=== PATIENT | female | born 1975 | race Caucasian/White ===

== ENCOUNTER 2017-10-09 11:52 | Emergency (ER) | payer MEDICAID ==
[2017-10-09] MEDS ORDERED: IPRATROPIUM/ALBUTEROL 3 ML DEYVIAL ONE (12:04)
[2017-10-09] MEDS ORDERED: IPRATROPIUM/ALBUTEROL 3 ML DEYVIAL IH ONE (12:09)
--- NOTE | 2017-10-09 12:12 | CPEKG ---
Heart Rate: 69 RR Interval: 870 P-R Interval: 136 QRSD Interval: 90 QT Interval: 376 QTC Interval: 403 P [place]: 68 QRS [place]: 88 T Wave [place]: 58 EKG Severity - ABNORMAL ECG - EKG Impression: SINUS RHYTHM EKG Impression: TRINITY, CONSIDER BIATRIAL ABNORMALITIES Electronically Signed By: Cristy Haskins 09-Oct-2017 14:53:56
--- NOTE | 2017-10-09 12:44 | EDPHY ---
General Time Seen by Provider: 10/09/17 12:39 Narrative: CHIEF COMPLAINT: Chest Pain HISTORY OF PRESENT ILLNESS: FAMILY HISTORY CARDIAC: PRIOR CARDIAC WORKUP: REVIEW OF SYSTEMS: Ten systems reviewed and are negative unless otherwise noted in the HPI EXAMINATION: General Appearance: Alert, no distress Head: normocephalic, atraumatic Eyes: Pupils equal and round, no conjunctival pallor or injection ENT, Mouth: Mucous membranes moist Neck: Normal inspection, supple, non-tender Respiratory: Lungs are clear to auscultation Cardiovascular: Regular rate and rhythm Gastrointestinal: Abdomen is soft and nontender Back: non-tender, no bony abnormalities Neurological: A&O, nonfocal, normal gait Skin: Warm and dry, no rash Extremities: Nontender, no pedal edema Psychiatric: Mood and affect normal DIFFERENTIAL DIAGNOSES: Including but not limited to in no particular order: Acute Chest Pain, ACS, Stable Angina, Pneumonia, PE, duodenitis, gastritis, esophagitis, GERD MDM: EKG: Interpreted by SUPERVISION: - History Smoking Status: Current every day smoker - Objective Vital Signs: Initial Vital Signs Temperature (C) 97.7 F 10/09/17 11:57 Heart Rate 87 10/09/17 11:57 Respiratory Rate 19 10/09/17 11:57 Blood Pressure 107/74 10/09/17 11:57 O2 Sat (%) 98 10/09/17 11:57 O2 Delivery Mode Room Air Allergies/Adverse Reactions: codeine [Codeine] Allergy (Unknown, Verified 10/09/17 11:55) ketorolac Allergy (Unknown, Verified 10/09/17 11:55) Penicillins Allergy (Unknown, Verified 10/09/17 11:55) Sulfa (Sulfonamide Antibiotics) [Sulfa(Sulfonamide Antibiotics)] Allergy ( Verified 10/09/17 11:55) Home Medications: Medication Instructions Recorded Ventolin Hfa Inhaler 10/09/17 Medications Given: Discontinued Medications Albuterol/Ipratropium (Duoneb) 3 ml IH EDNOW ONE Stop: 10/09/17 12:10 Last Admin: 10/09/17 12:12 Dose: 3 ml Departure - Departure Referrals: RYAN RODRIGUES [Primary Care Provider] - As per Instructions
--- NOTE | 2017-10-09 13:28 | EDPHY ---
H & P Time Seen by Provider: 10/09/17 12:39 HPI/ROS: CHIEF COMPLAINT: Right-sided chest pain, shortness of breath HISTORY OF PRESENT ILLNESS: 41-year-old female with Crohn's disease presents with right-sided chest pain and shortness of breath. Onset sharp and stabbing right-sided chest pain this morning, associated with shortness of breath. No fever or cough. History of prior pneumothorax related to blebs; concern for recurrent PTX. Hospitalized 3 weeks in 2017 for abnormal chest x-ray. Tuberculosis was ruled out and her symptoms were thought to be secondary to bleb disease and underlying rheumatologic disease. She recently moved to [place] in June 2017 and has her 1st pulmonology appointment next month. REVIEW OF SYSTEMS: Constitutional: No fever, no chills Eyes: No visual changes ENT: No sore throat Respiratory: No cough Gastrointestinal: No nausea, no vomiting, no abdominal pain Genitourinary: No hematuria, no dysuria Musculoskeletal: No leg pain or swelling Skin: No rash Neurological: No headache, no weakness Psychiatric: No depression Past Medical/Surgical History: Crohn's disease Chronic lung disease Social History: Recently moved to [place] PCP: Dr. Santiago Smoking Status: Current every day smoker Physical Exam: General Appearance: Alert, pleasant Eyes: Pupils equal and round, no conjunctival pallor or injection ENT, Mouth: Mucous membranes moist Neck: Normal inspection Respiratory: Lungs are clear to auscultation Cardiovascular: Regular rate and rhythm Gastrointestinal: Abdomen is soft and nontender Neurological: A&O, nonfocal, normal gait Skin: Warm and dry, no rash Extremities: Nontender, no pedal edema Psychiatric: Mood and affect normal Constitutional: Initial Vital Signs Temperature (C) 36.5 C 10/09/17 11:57 Heart Rate 87 10/09/17 11:57 Respiratory Rate 19 10/09/17 11:57 Blood Pressure 107/74 10/09/17 11:57 O2 Sat (%) 98 10/09/17 11:57 O2 Delivery Mode Room Air Allergies/Adverse Reactions: codeine [Codeine] Allergy (Unknown, Verified 10/09/17 11:55) ketorolac Allergy (Unknown, Verified 10/09/17 11:55) Penicillins Allergy (Unknown, Verified 10/09/17 11:55) Sulfa (Sulfonamide Antibiotics) [Sulfa(Sulfonamide Antibiotics)] Allergy ( Verified 10/09/17 11:55) Home Medications: Medication Instructions Recorded Ventolin Hfa Inhaler 10/09/17 Medical Decision Making - Diagnostics EKG Interpretation: EKG interpreted by me reveals normal sinus rhythm, rate 69, left atrial abnormality. Interpretation: Borderline EKG Imaging Results: Chest X-Ray 10/09/17 12:10 Impression: Fibronodular cicatricial process in the upper lobes bilaterally, left greater right, with with a 6.5 cm thick-walled left upper lobe cavity. Less prominent similar findings in the lingula and ill-defined nodule right lower lobe. Findings are suspicious for chronic lung infection such as tuberculosis. CT of the chest may be of benefit in further evaluation as clinically appropriate. Results called to Dr. Cristy Haskins at 12:[address]-A read by radiologist: no evidence of PE or PTX, CLD present. Imaging: Discussed imaging studies w/ call center trainer Radiologist, I viewed and interpreted images myself ED Course/Re-evaluation: This pt presents with right-sided chest pain and an abnormal chest x-ray. Prior extensive pulmonary evaluation; I have no clinical concern for tuberculosis, given pt's clinical history. The patient requests a CT pulmonary angiogram, which I feel is reasonable, given her symptomatology and prior history. Old medical records ordered from a hospital in [place]. CT scan results discussed with the patient. She is quite relieved that she does not have a pneumothorax or a pulmonary embolism. We have no old CTs for comparison, but it sounds like these changes are consistent with her prior diagnosis. Similar (though progressive) appearance as seen on prior abd CT ( per radiologist). We have not yet been able to obtain the old medical records from [place]. The patient will attempt to obtain prior CT scan results before pulmonology visit. She will return for worsening symptoms or any concerns. Differential Diagnosis: Differential diagnosis includes though it is not limited to pneumonia, pneumothorax, pulmonary embolism, aortic dissection, pericarditis, acute coronary syndrome. - Data Points Laboratory Results: Laboratory Results 10/09/17 12:18 10/09/17 12:18 Medications Given: Discontinued Medications Albuterol/Ipratropium (Duoneb) 3 ml IH EDNOW ONE Stop: 10/09/17 12:10 Last Admin: 10/09/17 12:12 Dose: 3 ml Departure - Departure Disposition: Home, Routine, Self-Care Clinical Impression: Chest pain Qualifiers: Chest pain type: chest pain on breathing Qualified Code(s): R07.1 - Chest pain on breathing; R07.81 - Pleurodynia Condition: Good Instructions: Chest Pain (ED) Additional Instructions: Return for worsening symptoms or any concerns. Referrals: Deshawn Mackay MD [Medical Doctor] - As per Instructions (Follow-up with Dr. Mackay in the office.) RYAN SANTIAGO [Primary Care Provider] - 2-3 days, call for appt.
[2017-10-09 13:36] LABS: PLATELET COUNT 356 10^3/uL (150-400)
[2017-10-09] MEDS ORDERED: IOPAMIDOL (ISOVUE 370) 100 ML BTL IV ONE (14:03)
[2017-10-09 15:05] VITALS: BP 104/65
== END 2017-10-09 15:05 | disposition home or self-care (01) ==
DX: R07.1 Chest pain on breathing (principal); R07.81 Pleurodynia; F17.200 Nicotine dependence, unspecified, uncomplicated
CPT/HCPCS: Q9967

== ENCOUNTER 2017-11-06 09:42 | Emergency (ER) | payer MEDICAID ==
[2017-11-06 09:54] VITALS: BP 100/63
--- NOTE | 2017-11-06 11:18 | EDPHY ---
HPI/HX/ROS/PE/MDM Narrative: CHIEF COMPLAINT: Shortness of breath HISTORY OF PRESENT ILLNESS: 41 year old female arriving via EMS presents with shortness of breath onset last night. She endorses history of asthma and esophageal problems. She has taken her inhaler without relief. She was evaluated in September for similar symptoms. Currently, the patient complains of esophageal pain and difficulty breathing. While coughing last night, she felt as if her esophagus moved. She states she has history of Crohn's disease and "I've had like 18 surgeries". Additionally, she has felt ill for the past week with cough and cold symptoms. No fever, chills, palpitations, vomiting, diarrhea, urinary complaints, headache , lightheadedness. HPI difficult to obtain as patient is a difficult historian. She reports being frustrated with her past medical care. REVIEW OF SYSTEMS: Aside from elements discussed in the HPI, a comprehensive 10-point review of systems was reviewed and is negative. PAST MEDICAL HISTORY: Crohn's disease s/p intestinal surgery, RA, endometriosis , s/p hysterectomy. SOCIAL HISTORY: Marijuana use. Occasional alcohol use. Former smoker, quit one month ago. Denies illicit drug use. VITAL SIGNS: Reviewed by me GENERAL: Uncomfortable appearing. HEENT: Atraumatic. Eyes: No icterus, no injection. Mouth: moist mucous membranes. No erythema or lesions. Neck: supple with no adenopathy. LUNGS: Posterior wheezes. No rhonchi or rales. CARDIAC: Regular rate and rhythm, no rubs, murmurs or gallops. ABDOMEN: High epigastric tenderness. Soft, nondistended, bowel sounds normal. BACK: No CVA tenderness. EXTREMITIES: No trauma. No edema. Range of motion is normal throughout. NEURO: Alert and oriented, grossly nonfocal. SKIN: Warm and dry, no rash. PSYCHIATRIC: Normal mentation, no agitation. Portions of this note were transcribed by a medical sales associate. I personally performed a history, physical exam, medical decision making, and confirmed accuracy of information the transcribed note. ED Course: 41 y/o female presents with shortness of breath. History difficult to obtain, and the patient is reluctant to provide significant history, answering questions in a brissa, aggressive manner. Exam reveals high epigastric tenderness. Patient declines GI cocktail. Plan to administer DuoNeb, labs including CBC, chemistries. CXR reviewed. Evidence of cavitary lesions as previously noted on a CT scan. There does appear to be right lateral mid lung patchy opacification. Patient declined a lateral x-ray and only a PA was obtained. Patient received a DuoNeb and had an albuterol nebulizer ordered. Chest x-ray shows persistent predominantly bilateral upper lobe cavitary disease with cicatrization, left greater than right, compared to 10/09/2017, with a new area of focal pleural parenchymal consolidation in the lateral right midlung. Plan for CT for further evaluation. Notified by the nursing staff that the patient expresses great frustration regarding her care. She repeatedly states that we are doing nothing for her shortness of breath. We discussed further evaluation of her chest x-ray findings especially with respect to the consolidation in the lateral right mid lung which may represent pneumonia versus pulmonary embolism. Patient eloped from the emergency department, leaving a note stating that we were not taking care of her and not treating her shortness of breath. Patient left AMA after removing her IV. See NN. MDM: Differential diagnosis for the patient's shortness of breath was considered including but not limited to pulmonary infectious processes, COPD exacerbation, pulmonary emboli, pulmonary edema, congestive heart failure, and cardiac causes. - Data Points Imaging Results: Imaging Impressions Chest X-Ray 11/06/17 10:54 Impression: Persistent predominantly bilateral upper lobe cavitary disease with cicatrization, left greater than right, compared to 10/09/2017, with a new area of focal pleural parenchymal consolidation in the lateral right midlung. Imaging: Discussed imaging studies w/ inbound call center representative Radiologist, I viewed and interpreted images myself Laboratory Results: Laboratory Results 11/06/17 11:40 11/06/17 11:40 11/06/17 11/06/17 11:40 11:40 WBC 12.55 10^3/uL H 10^3/uL (3.80-9.50) RBC 4.90 10^6/uL 10^6/uL (4.18-5.33) Hgb 14.0 g/dL g/dL (12.6-16.3) Hct 40.9 % % (38.0-47.0) MCV 83.5 fL fL (81.5-99.8) MCH 28.6 pg pg (27.9-34.1) MCHC 34.2 g/dL g/dL (32.4-36.7) RDW 13.9 % % (11.5-15.2) Plt Count 374 10^3/uL 10^3/uL (150-400) MPV 9.0 fL fL (8.7-11.7) Neut % (Auto) 71.9 % % (39.3-74.2) Lymph % (Auto) 18.6 % % (15.0-45.0) Leslie % (Auto) 8.7 % % (4.5-13.0) Eos % (Auto) 0.5 % L % (0.6-7.6) Baso % (Auto) 0.1 % L % (0.3-1.7) Nucleat RBC Rel Count 0.0 % % (0.0-0.2) Absolute Neuts (auto) 9.02 10^3/uL H 10^3/uL (1.70-6.50) Absolute Lymphs (auto) 2.34 10^3/uL 10^3/uL (1.00-3.00) Absolute Monos (auto) 1.09 10^3/uL H 10^3/uL (0.30-0.80) Absolute Eos (auto) 0.06 10^3/uL 10^3/uL (0.03-0.40) Absolute Basos (auto) 0.01 10^3/uL L 10^3/uL (0.02-0.10) Absolute Nucleated RBC 0.00 10^3/uL 10^3/uL (0-0.01) Immature Gran % 0.2 % % (0.0-1.1) Immature Gran # 0.03 10^3/uL 10^3/uL (0.00-0.10) Sodium 135 mEq/L mEq/L (135-145) Potassium 5.2 mEq/L mEq/L (3.5-5.2) Chloride 101 mEq/L mEq/L (97-110) Carbon Dioxide 17 mEq/l L mEq/l (22-31) Anion Gap 17 mEq/L H mEq/L (8-16) BUN 5 mg/dL L mg/dL (7-23) Creatinine 0.6 mg/dL mg/dL (0.6-1.0) Estimated GFR > 60 Glucose 95 mg/dL mg/dL (70-100) Calcium 9.4 mg/dL mg/dL (8.5-10.4) Medications Given: Discontinued Medications Albuterol (Proventil Neb) 3 ml IH EDNOW ONE Stop: 11/06/17 11:25 Last Admin: 11/06/17 12:42 Dose: Not Given Albuterol/Ipratropium (Duoneb) 3 ml IH EDNOW ONE Stop: 11/06/17 11:39 Last Admin: 11/06/17 11:38 Dose: 3 ml Sodium Chloride (Ns) 1,000 mls @ 0 mls/hr IV ONCE ONE; Wide Open PRN Reason: Protocol Stop: 11/06/17 11:23 Last Admin: 11/06/17 11:37 Dose: 1,000 mls General Time Seen by Provider: 11/06/17 11:05 Initial Vital Signs: Initial Vital Signs Temperature (C) 36.6 C 11/06/17 09:51 Heart Rate 68 11/06/17 09:51 Respiratory Rate 22 H 11/06/17 09:51 Blood Pressure 100/63 11/06/17 09:51 O2 Sat (%) 100 11/06/17 09:51 O2 Delivery Mode Room Air Allergies/Adverse Reactions: codeine [Codeine] Allergy (Unknown, Verified 11/06/17 09:50) ketorolac Allergy (Unknown, Verified 11/06/17 09:50) Penicillins Allergy (Unknown, Verified 11/06/17 09:50) hydrocortisone Allergy (Verified 11/06/17 09:50) Sulfa (Sulfonamide Antibiotics) [Sulfa(Sulfonamide Antibiotics)] Allergy ( Verified 11/06/17 09:50) Home Medications: Medication Instructions Recorded Ventolin Hfa Inhaler 10/09/17 Departure - Departure Disposition: Against Medical Advice Clinical Impression: Shortness of breath Condition: Fair Additional Instructions: Patient left the emergency department prior to full completion of her evaluation. Referrals: RYAN RODRIGUES [Primary Care Provider] - As per Instructions Report Scribed for: Kim Jensen Report Scribed by: Taryn Swanson Date of Report: 11/06/17 Time of Report: 14:26
[2017-11-06] MEDS ORDERED: IPRATROPIUM/ALBUTEROL 3 ML DEYVIAL ONE (11:22)
[2017-11-06] MEDS ORDERED: NS 1,000 ML IV ONE (11:22)
[2017-11-06] MEDS ORDERED: ALBUTEROL 3 ML DEYVIAL IH ONE (11:24)
[2017-11-06] MEDS ORDERED: IPRATROPIUM/ALBUTEROL 3 ML DEYVIAL IH ONE (11:38)
[2017-11-06 11:50] LABS: PLATELET COUNT 374 10^3/uL (150-400)
== END 2017-11-06 12:30 | disposition left against medical advice (07) ==
LOC: EDUNIT#
DX: R06.02 Shortness of breath (principal); E86.9 Volume depletion, unspecified; Z87.891 Personal history of nicotine dependence

== ENCOUNTER 2018-03-15 19:44 | Emergency (ER) | payer MEDICAID ==
--- NOTE | 2018-03-15 20:14 | EDPHY ---
H & P Stated Complaint: POSS PNA/HX RECURRING PNA,DEGEN MAC? Time Seen by Provider: 03/15/18 20:14 - Personal History LMP (Females 10-55): Hysterectomy Current Tetanus Diphtheria and Acellular Pertussis (TDAP): Yes Tetanus Vaccine Date: unsure - Medical/Surgical History Hx Asthma: No Hx Chronic Respiratory Disease: Yes Hx Diabetes: No Hx Cardiac Disease: No Hx Renal Disease: No Hx Cirrhosis: No Hx Alcoholism: No Hx HIV/AIDS: No Hx Splenectomy or Spleen Trauma: No Other PMH: PSHx: intestinal surg r/t crohns/hysterectomy. PMHx: crohn's, RA, endometriosis, last surg 2011, DEGENERATIVE MAC, RECURRING PNA, SPONTANEOUS PNEUMOTHORAX X 2 IN L LUNG - Social History Smoking Status: Former smoker Constitutional: Initial Vital Signs Temperature (C) 37.4 C 03/15/18 20:02 Heart Rate 80 03/15/18 20:02 Respiratory Rate 20 03/15/18 20:02 Blood Pressure 96/66 L 03/15/18 20:02 O2 Sat (%) 97 03/15/18 20:02 O2 Delivery Mode Room Air Allergies/Adverse Reactions: Penicillins Allergy (Severe, Verified 03/15/18 21:16) Anaphylaxis codeine [Codeine] Allergy (Unknown, Verified 03/15/18 21:16) Rash/ Severe vomiting ketorolac Allergy (Unknown, Verified 03/15/18 21:16) GI Bleed hydrocortisone Allergy (Verified 03/15/18 21:16) Doesn't tolerate hydromorphone [From Dilaudid] Allergy (Verified 03/15/18 21:16) Psycological changes Sulfa (Sulfonamide Antibiotics) [Sulfa(Sulfonamide Antibiotics)] Allergy ( Verified 03/15/18 21:16) Hives Home Medications: Medication Instructions Recorded Albuterol Sulfate [Ventolin Hfa] 2 puffs IH Q4 PRN 03/15/18 Medical Decision Making - Diagnostics Imaging Results: Imaging Impressions Chest X-Ray 03/15/18 20:20 Impression: 1. Cavitary lung disease once again identified involving the upper lobes with reticular nodular densities once again seen involving the mid and lower lungs. Consider underlying fungal disease/aspergillosis. History of non-mycobacterial infection. 2. No new consolidation. Imaging: I viewed and interpreted images myself ED Course/Re-evaluation: CHIEF COMPLAINT: Shortness of breath HISTORY OF PRESENT ILLNESS: The patient is a 42 y/o female with a history of Chron's disease, degenerative mac, and recurring pneumonia complaining of worsening shortness of breath, onset 1 week ago. In December she was diagnosed with pneumonia and subsequently saw Dr. Winston, decorating supervisor. Currently she feels like her "lungs are on fire" and it is painful to take a deep breath. She also has a cough associated with green sputum. This is similar to prior pneumonia diagnoses. She states that due to her Chron's disease, she cannot take oral antibiotics but can have IV antibiotics. No headache, abdominal pain, urinary or bowel complaints, numbness , paresthesias, fevers. REVIEW OF SYSTEMS: A comprehensive 10 system review of systems is otherwise negative aside from elements mentioned in the history of present illness and medical decision making. PHYSICAL EXAM: HR, BP, O2 Sat, RR. Temp noted General Appearance: Alert, well hydrated, and appropriate. Head: Atraumatic without scalp tenderness or obvious injury Eyes: Pupils equal, round, reactive to light and accommodation, EOMI, no trauma , no injection. Ears: Clear bilaterally, no perforation, normal landmarks Nose: Atraumatic, no rhinorrhea, clear. Throat: There is no erythema or exudates, no lesions, normal tonsils, mucus membranes moist. Neck: Supple, nontender, no lymphadenopathy. Respiratory: Bilateral coarse rhonchi, decreased breath sounds, expiratory wheezes. Cardiovascular: Regular rate and rhythm, no murmurs, rubs, or gallops. Bilateral carotid, radial, dorsalis pedis, and posterior tibial pulses intact. Good capillary refill all extremities. Gastrointestinal: Abdomen is soft, nontender, non-distended, no masses, no rebound, no guarding, no peritoneal signs. Musculoskeletal: Normal active ROM of all extremities, atraumatic. Neurological: Alert, appropriate, and interactive. The patient has normal DTRs and non-focal cranial nerves, motor, sensory, and cerebellar exam. Skin: No rashes, good turgor, no nodules on palpation. Past medical history: Chron's disease, degenerative mac, recurring pneumonia, spontaneous pneumonia, rheumatoid arthritis Past surgical history: Intestinal surgery, hysterectomy Family history: Denies Social history: Friend at bedside, lives in [place], not employed DIAGNOSTICS/PROCEDURES/CRITICAL CARE TIME: Chest x-ray: Cavitary lung disease once again identified involving the upper lobes with reticular nodular densities once again seen involving the mid and lower lungs. Consider underlying fungal disease/aspergillosis. History of non- mycobacterial infection. No new consolidation. DIFFERENTIAL DIAGNOSIS: The differential diagnosis for the patient's shortness of breath and hypoxemia included but was not limited to pneumonia, myocardial infarction, acute mountain sickness, high altitude pulmonary edema, congestive heart failure, and pulmonary embolus. MEDICAL DECISION MAKING: The patient is a 42 y/o female with a history of Chron's disease, degenerative mac, and recurring pneumonia presenting with worsening shortness of breath, onset 1 week ago. On exam she has bilateral coarse rhonchi, decreased breath sounds, and expiratory wheezes. Labs and chest x-ray ordered; DuoNeb administered. She is declining steroids at this time. 2129: Patient's chest x-ray reveals cavitary lung disease in the upper lobes with reticular nodular densities in the mid and lower lungs. This is similar to prior studies. There are no acute findings. 2141: I reviewed patient's labs which reveal a small white count. 2144: Reassessed patient and discussed laboratory and imaging findings. She is refusing antibiotics and admission. I have advised her to follow up with her PCP for follow up antibiotic administration. Return precautions provided. - Data Points Laboratory Results: Laboratory Results 03/15/18 20:35 03/15/18 20:35 03/15/18 03/15/18 03/15/18 20:35 20:35 20:35 WBC 12.41 10^3/uL H 10^3/uL (3.80-9.50) RBC 4.41 10^6/uL 10^6/uL (4.18-5.33) Hgb 12.1 g/dL L g/dL (12.6-16.3) Hct 36.3 % L % (38.0-47.0) MCV 82.3 fL fL (81.5-99.8) MCH 27.4 pg L pg (27.9-34.1) MCHC 33.3 g/dL g/dL (32.4-36.7) RDW 14.4 % % (11.5-15.2) Plt Count 381 10^3/uL 10^3/uL (150-400) MPV 8.9 fL fL (8.7-11.7) Neut % (Auto) 72.7 % % (39.3-74.2) Lymph % (Auto) 19.3 % % (15.0-45.0) [place] % (Auto) 6.4 % % (4.5-13.0) Eos % (Auto) 1.2 % % (0.6-7.6) Baso % (Auto) 0.2 % L % (0.3-1.7) Nucleat RBC Rel Count 0.0 % % (0.0-0.2) Absolute Neuts (auto) 9.02 10^3/uL H 10^3/uL (1.70-6.50) Absolute Lymphs (auto) 2.40 10^3/uL 10^3/uL (1.00-3.00) Absolute Monos (auto) 0.79 10^3/uL 10^3/uL (0.30-0.80) Absolute Eos (auto) 0.15 10^3/uL 10^3/uL (0.03-0.40) Absolute Basos (auto) 0.02 10^3/uL 10^3/uL (0.02-0.10) Absolute Nucleated RBC 0.00 10^3/uL 10^3/uL (0-0.01) Immature Gran % 0.2 % % (0.0-1.1) Immature Gran # 0.03 10^3/uL 10^3/uL (0.00-0.10) PT 13.7 SEC SEC (12.0-15.0) INR 1.03 (0.83-1.16) APTT 32.1 SEC SEC (23.0-38.0) VBG Lactic Acid Sodium 137 mEq/L mEq/L (135-145) Potassium 3.8 mEq/L mEq/L (3.3-5.0) Chloride 102 mEq/L mEq/L (97-110) Carbon Dioxide 26 mEq/l mEq/l (22-31) Anion Gap 9 mEq/L mEq/L (8-16) BUN 5 mg/dL L mg/dL (7-23) Creatinine 0.6 mg/dL mg/dL (0.6-1.0) Estimated GFR > 60 Glucose 100 mg/dL mg/dL (70-100) Calcium 9.7 mg/dL mg/dL (8.5-10.4) Total Bilirubin 0.3 mg/dL mg/dL (0.1-1.4) 03/15/18 20:35 WBC RBC Hgb Hct MCV MCH MCHC RDW Plt Count MPV Neut % (Auto) Lymph % (Auto) [place]er % (Auto) Eos % (Auto) Baso % (Auto) Nucleat RBC Rel Count Absolute Neuts (auto) Absolute Lymphs (auto) Absolute Monos (auto) Absolute Eos (auto) Absolute Basos (auto) Absolute Nucleated RBC Immature Gran % Immature Gran # PT INR APTT VBG Lactic Acid 0.9 mmol/L mmol/L (0.7-2.1) Sodium Potassium Chloride Carbon Dioxide Anion Gap BUN Creatinine Estimated GFR Glucose Calcium Total Bilirubin Medications Given: Discontinued Medications Albuterol/Ipratropium (Duoneb) 3 ml IH EDNOW ONE Stop: 03/15/18 20:21 Last Admin: 03/15/18 20:39 Dose: 3 ml Departure - Departure Disposition: Home, Routine, Self-Care Clinical Impression: Shortness of breath Condition: Good Instructions: Shortness of Breath (ED) Additional Instructions: 1. Follow-up with your primary doctor tomorrow, you may need follow up antibiotics. We gave you 2gm IV Ceftriaxone prior to discharge. 2. Return to the Emergency Department for fever, chest pain, shortness of breath , increasing pain or other worsening of condition. Referrals: RYAN RODRIGUES [Primary Care Provider] - As per Instructions Report Scribed for: Jose Almodovar Report Scribed by: Anushka Guzman Date of Report: 03/15/18 Time of Report: 20:15
[2018-03-15] MEDS ORDERED: IPRATROPIUM/ALBUTEROL 3 ML DEYVIAL IH ONE (20:20)
[2018-03-15] MEDS ORDERED: IPRATROPIUM/ALBUTEROL 3 ML DEYVIAL ONE (20:20)
[2018-03-15 20:49] LABS: PLATELET COUNT 381 10^3/uL (150-400)
[2018-03-15 20:57] LABS: INR 1.03 (0.83-1.16); PROTIME(PATIENT) 13.7 SEC (12.0-15.0)
[2018-03-15 22:08] VITALS: BP 100/62
== END 2018-03-15 22:08 | disposition home or self-care (01) ==
DX: R06.02 Shortness of breath (principal)
CPT/HCPCS: J0696

== ENCOUNTER 2018-03-29 11:37 | Emergency (ER) | payer MEDICAID ==
[2018-03-29 12:43] LABS: PLATELET COUNT 446 10^3/uL (150-400)
[2018-03-29 13:26] VITALS: BP 112/64
--- NOTE | 2018-03-29 13:32 | EDPHY ---
H & P Stated Complaint: 2 MONTHS COUGH/SOB SEEN HERE 2 WEEKS AGO FOR SAME Time Seen by Provider: 03/29/18 12:55 HPI/ROS: CHIEF COMPLAINT: Cough, shortness of breath HISTORY OF PRESENT ILLNESS: 42-year-old female with chronic lung disease presents with cough and shortness of breath. Onset of a moist cough 2 months ago. The cough has been persistent and is associated with shortness of breath. She was seen in this emergency department 2 weeks ago. Chest x-ray was unchanged at that time. Since then, she has continued to have a moist cough, associated with nasal congestion. No fever. 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 REVIEW OF SYSTEMS: complete 10 point ROS reviewed and is negative except for the noted elements in the HPI - Personal History LMP (Females 10-55): Post Menopausal Current Tetanus Diphtheria and Acellular Pertussis (TDAP): Yes Tetanus Vaccine Date: unsure - Medical/Surgical History Hx Asthma: No Hx Chronic Respiratory Disease: Yes Hx Diabetes: No Hx Cardiac Disease: No Hx Renal Disease: No Hx Cirrhosis: No Hx Alcoholism: No Hx HIV/AIDS: No Hx Splenectomy or Spleen Trauma: No Other PMH: PSHx: intestinal surg r/t crohns/hysterectomy. PMHx: crohn's, RA, endometriosis, last surg 2011, DEGENERATIVE MAC, RECURRING PNA, SPONTANEOUS PNEUMOTHORAX X 2 IN L LUNG - Social History Smoking Status: Current every day smoker Alcohol Use: None Drug Use: None - Physical Exam Exam: General Appearance: Alert, pleasant, nontoxic-appearing Eyes: Pupils equal and round, no conjunctival pallor or injection ENT, Mouth: Mucous membranes moist Neck: Normal inspection Respiratory: Lungs are clear to auscultation, no wheezing Cardiovascular: Regular rate and rhythm Gastrointestinal: Abdomen is soft and nontender Neurological: A&O, nonfocal, normal gait Skin: Warm and dry, no rash Extremities: Normal inspection Psychiatric: Anxious Constitutional: Initial Vital Signs Temperature (C) 36.3 C 03/29/18 11:43 Heart Rate 90 03/29/18 11:43 Respiratory Rate 19 03/29/18 11:43 Blood Pressure 97/68 L 03/29/18 11:43 O2 Sat (%) 97 03/29/18 11:43 O2 Delivery Mode Room Air Allergies/Adverse Reactions: Penicillins Allergy (Severe, Verified 03/15/18 21:16) Anaphylaxis codeine [Codeine] Allergy (Unknown, Verified 03/15/18 21:16) Rash/ Severe vomiting ketorolac Allergy (Unknown, Verified 03/15/18 21:16) GI Bleed hydrocortisone Allergy (Verified 03/15/18 21:16) Doesn't tolerate hydromorphone [From Dilaudid] Allergy (Verified 03/15/18 21:16) Psycological changes Sulfa (Sulfonamide Antibiotics) [Sulfa(Sulfonamide Antibiotics)] Allergy ( Verified 03/15/18 21:16) Hives Home Medications: Medication Instructions Recorded Albuterol Sulfate [Ventolin Hfa] 2 puffs IH Q4 PRN 03/15/18 Azithromycin [Zithromax] 250 mg PO DAILY #6 tab 03/29/18 Medical Decision Making - Diagnostics Imaging Results: Imaging Impressions Chest X-Ray 03/29/18 11:48 Impression: No change to chronic interstitial lung disease. Imaging: I viewed and interpreted images myself ED Course/Re-evaluation: This patient presents with subacute cough and shortness of breath. Vital signs are normal including oxygen saturation of 97% on room air. Chest x-ray reveals chronic lung disease, without infiltrate. I had a prolonged conversation with this patient. She feels that she needs IV antibiotics. However, I do not feel that IV antibiotics are indicated, as there is no infiltrate on chest x-ray and oral antibiotics would suffice. However, she declines oral antibiotics. I will give her prescription for Zithromax in case she changes her mind. There is also a significant psychological component to her illness and chronic disease. I spoke with her about this and encouraged her to follow-up with mental health. Differential Diagnosis: Differential diagnosis includes though it is not limited to pneumonia, pneumothorax, pulmonary embolism, aortic dissection, pericarditis, acute coronary syndrome. - Data Points Laboratory Results: Laboratory Results 03/29/18 12:30 03/29/18 12:30 03/29/18 03/29/18 12:30 12:30 WBC 14.25 10^3/uL H 10^3/uL (3.80-9.50) RBC 5.10 10^6/uL 10^6/uL (4.18-5.33) Hgb 13.8 g/dL g/dL (12.6-16.3) Hct 42.0 % % (38.0-47.0) MCV 82.4 fL fL (81.5-99.8) MCH 27.1 pg L pg (27.9-34.1) MCHC 32.9 g/dL g/dL (32.4-36.7) RDW 14.4 % % (11.5-15.2) Plt Count 446 10^3/uL H 10^3/uL (150-400) MPV 8.8 fL fL (8.7-11.7) Neut % (Auto) 81.7 % H % (39.3-74.2) Lymph % (Auto) 13.0 % L % (15.0-45.0) Mclean % (Auto) 4.4 % L % (4.5-13.0) Eos % (Auto) 0.4 % L % (0.6-7.6) Baso % (Auto) 0.1 % L % (0.3-1.7) Nucleat RBC Rel Count 0.0 % % (0.0-0.2) Absolute Neuts (auto) 11.63 10^3/uL H 10^3/uL (1.70-6.50) Absolute Lymphs (auto) 1.85 10^3/uL 10^3/uL (1.00-3.00) Absolute Monos (auto) 0.63 10^3/uL 10^3/uL (0.30-0.80) Absolute Eos (auto) 0.06 10^3/uL 10^3/uL (0.03-0.40) Absolute Basos (auto) 0.02 10^3/uL 10^3/uL (0.02-0.10) Absolute Nucleated RBC 0.00 10^3/uL 10^3/uL (0-0.01) Immature Gran % 0.4 % % (0.0-1.1) Immature Gran # 0.06 10^3/uL 10^3/uL (0.00-0.10) Sodium 138 mEq/L mEq/L (135-145) Potassium 4.3 mEq/L mEq/L (3.3-5.0) Chloride 103 mEq/L mEq/L (97-110) Carbon Dioxide 21 mEq/l L mEq/l (22-31) Anion Gap 14 mEq/L mEq/L (8-16) BUN 8 mg/dL mg/dL (7-23) Creatinine 0.6 mg/dL mg/dL (0.6-1.0) Estimated GFR > 60 Glucose 90 mg/dL mg/dL (70-100) Calcium 9.9 mg/dL mg/dL (8.5-10.4) Departure - Departure Disposition: Home, Routine, Self-Care Clinical Impression: Acute bronchitis Qualifiers: Bronchitis organism: unspecified organism Qualified Code(s): J20.9 - Acute bronchitis, unspecified Condition: Good Instructions: Acute Bronchitis (ED) Additional Instructions: Drink plenty of fluids. I recommend a trial of antibiotics. If you are still smoking, please stop. Return for worsening symptoms or any concerns. Referrals: RYAN RODRIGUES [Primary Care Provider] - 2-3 days, call for appt. Bhavesh Gil MD [Medical Doctor] - As per Instructions (Call to make an appointment with Dr. Gil. ) Prescriptions: Azithromycin [Zithromax] 250 mg PO DAILY #6 tab
== END 2018-03-29 13:40 | disposition home or self-care (01) ==
DX: J20.9 Acute bronchitis, unspecified (principal); M06.9 Rheumatoid arthritis, unspecified; Z87.01 Personal history of pneumonia (recurrent); F17.210 Nicotine dependence, cigarettes, uncomplicated; J98.4 Other disorders of lung

== ENCOUNTER 2018-08-10 08:29 | Emergency (ER) | payer MEDICAID ==
[2018-08-10] MEDS ORDERED: fentaNYL 100 MCG/2 ML INJ IVP ONE (09:13)
[2018-08-10] MEDS ORDERED: NS 1,000 ML IV ONE (09:13)
--- NOTE | 2018-08-10 09:13 | EDPHY ---
General - History Smoking Status: Current every day smoker Time Seen by Provider: 08/10/18 08:48 Narrative: CLINICAL IMPRESSION: Abdominal pain, left hip pain ASSESSMENT/PLAN: Patient is a 42-year-old female with a significant history of rheumatoid arthritis, Crohn's disease status post bowel resection, endometriosis status post hysterectomy and degenerative mac who presents to the emergency department with complaints of generalized abdominal pain that is been ongoing however improving over the last week and acute left hip pain which has been worsening over the last 4 days. Patient is afebrile she is uncomfortable appearing however not toxic-appearing. HSNE intact with no significant red flags. CBC revealed mild leukocytosis, nonspecific. Her vital signs were reviewed and there were no findings to suggest sepsis or serious bacterial illness. Metabolic panel without evidence of acute metabolic abnormality or acute kidney injury. Lipase and liver function panels unremarkable without evidence of acute hepatitis, acute hepatobiliary obstruction or acute pancreatitis. CT abdomen and pelvis with mild fluid in the small bowel without evidence of significant inflammation, dilatation or obstruction, colon is unremarkable as well as bony structures including the left hip. History and physical examination today is consistent with generalized abdominal pain and acute left hip pain. She had no saddle paresthesias, lower extremity numbness, tingling, major motor weakness, urinary retention or bowel/bladder incontinence. No indication for emergent MRI. There were no clinical findings to suggest acute surgical abdomen including appendicitis, cholecystitis, kidney stone, perforation or obstruction. In regards to her left hip pain, she had no back pain to suggest lumbar etiology and no radicular pain to suggest sciatica. I do not suspect other etiologies to include osteomyelitis, acute fracture, dislocation, septic joint, herpes zoster, or additional emergent intraabdominal infectious/obstructive process. It is unclear the exact etiology of her ongoing generalized abdominal pain and acute atraumatic left hip pain at this time. Patient was given single dose of morphine and Percocet while in the ED with significant improvement of her pain. She is well established with her PCP and understands the importance of close follow-up, she will call to schedule appointment to be seen in the next 1-2 days. Strict return precautions discussed- she will return for increased or unmanageable pain, new injury, new midline back pain, numbness, tingling, weakness of legs, loss of bowel or bladder control, saddle paresthesia, urinary retention, loss of bowel or bladder control, difficulty walking or for any other new, worsening or worrisome symptoms. Patient verbalizes understanding and she is in agreement with plan. DIFFERENTIAL DX: Abdominal pain in a female including but not limited to ovarian cyst, pelvic inflammatory disease, ovarian torsion, urinary tract infection, and appendicitis. Hip pain differential including but not limited to dislocation, fracture, radicular symptoms, septic joint. ED COURSE: 0910: Case discussed with Dr. Tejeda 1145: The by patient's room, she is resting comfortably in her bed on her phone , no acute distress. 1215: Dr. Tejeda evaluated this patient, patient would like to be discharged home with pain medication and follow up with her PCP. 1225: On repeat examination the patient is well-appearing, her abdomen is soft , mild generalized tenderness to palpation without peritoneal signs or evidence of a surgical abdomen. She states that her hip pain is much better. 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 Patient reports last week she started to experience some pain with passing solids notably in her epigastrium, she has experienced this before and felt like it was secondary to scar tissue. Patient has been on a liquid diet with improvement of her symptoms. Patient complains of mild generalized abdominal discomfort that has waxed and waned over the week, 4 days ago she started to experience left hip pain similar to episodes that she has had in the past. Typically when she experiences hip pain it goes away within about a day, this has persisted and worsened. She expresses concerns with her sciatic nerve however no history of sciatica. She denies any trauma or injury. She describes it as burning and sharp in sensation. She denies any radiation of the pain. She states "I feel like it is dislocated". Patient has been experiencing some constipation, denies any episodes of diarrhea, melena or hematochezia. Patient has a chronic cough which is unchanged. She denies any fevers, chills, chest pain or increased shortness of breath. She has had no nausea or vomiting. She has had no recent spinal procedures and no history of IV drug use. Patient denies saddle paresthesias, lower extremity numbness, tingling, major motor weakness, urinary retention or bowel/bladder incontinence. Patient also denies any urinary symptoms to include dysuria, hematuria or increased frequency. Patient endorses medical noncompliance with her ulcerative colitis as she prefers to treat her medical issues with CBD and no Western medicine therapies. PMH: Crohn's, rheumatoid arthritis, endometriosis, degenerative mac Pertinent Past Surgical History: Bowel resection, hysterectomy Family History: Noncontributory Social History: Denies smoking or illicit drug use REVIEW OF SYSTEMS: All other systems negative Constitutional: No fever, no chills, appetite change. Eyes: No discharge, vision change ENT: No sore throat, congestion, ear pain. Cardiovascular: No chest pain, no palpitations. Respiratory: Chronic cough. Gastrointestinal: Generalized abdominal pain, intermittent constipation. Genitourinary: No hematuria, dysuria, flank pain, pelvic pain Musculoskeletal: Left hip pain. No back pain, joint swelling, myalgias. Skin: No rashes, color change. Neurological: No headache, dizziness, weakness. PHYSICAL EXAM: General Appearance: Patient is thin, very uncomfortable appearing however not toxic-appearing. HENT: Normocephalic, atraumatic. Bilateral external ears are normal. Bilateral tympanic membranes are normal with pearly andrews reflex. Nares are clear, mucosa is pink. Oropharynx is clear, uvula is midline. There is no tonsillar enlargement or exudate. The dentition is normal. Eyes: PERRLA, no acute vision change, nystagmus, swelling, discharge, pain or photosensitivity. Conjunctiva pink, no pallor or injection. Neck: Supple, nontender, no lymphadenopathy, no midline pain, FROM, no meningismus. Respiratory: There are no retractions, lungs are clear to auscultation. Frequent dry cough. Cardiac: Regular rate and rhythm, no murmurs or gallops. Gastrointestinal: Abdomen is soft, bowel sounds normal, no rigidity, guarding or focal peritoneal findings. Patient has generalized, nonfocal tenderness to palpation, no masses or hernias appreciated. Neurological: Alert and oriented x 3, CN 2-12 grossly intact, normal gait no ataxia, DTR's intact, normal sensation and strength Skin: Warm, dry, no rashes, no nodules on palpation. Back: No step-off, palpable bony abnormality, edema, erythema or ecchymosis of the cervical, thoracic or lumbar spines. Patient with no tenderness to palpation of the midline thoracic or lumbar spines , no SI joint tenderness. FROM of C-spine. Limited ROM of lumbar spine due to pain. 4/5 and equal strength of the UEs and LEs bilaterally including shoulder shrug. Pulses: 2+ and equal radial, DP and PT pulses bilaterally. Sensation intact and symmetric to light touch from face, UEs and LEs bilaterally. Straight leg raise negative bilaterally. Upper Extremities: Intact distal pulses, Full range of motion intact, no tenderness, no ecchymosis or edema Lower Extremities: Patient with generalized tenderness to palpation of her left hip. No pain with passive range of motion. Patient unable to initially flex or extend secondary to pain, she ambulates with a limp. Intact distal pulses, No edema, No tenderness, No cyanosis, full range of motion intact, No calf tenderness bilaterally. Psychiatric: Patient is oriented X 3, there is no agitation. MEDICAL DECISION MAKING: Patient was seen independently. Secondary supervising physician at time of evaluation was Dr. Tejeda, he also evaluated this patient. Diagnosis: Generalized abdominal pain, left hip pain. New, requires workup Summary: See Assessment and Plan for summary of ED visit Clinical lab tests: Yes. Independent visualization of images, tracing, or specimens: Yes. Decision to obtain medical records or history from someone other than the patient: Now Review / Summarize previous medical records: Yes Discussed patient with another provider: Yes, Dr. Tejeda Patient Progress: Stable, discharge. (Adele Durham) Medical Decision Making: I did evaluate this patient independently. Her abdominal exam is nontender and benign. She complains of primarily right hip/gluteal pain that she thinks is sciatica. She supposed that it was migration of her endometriosis. We discussed this as a possibility which is seems unlikely. She denies trauma. No fevers. She has no focal neuro deficits. She is ambulating without difficulty. We discussed options including admission which she declined. She would prefer to go home and we discussed indications for return to the emergency department as well as follow-up. (Donavan Tejeda) Discussion: 12:00 p.m. I had a long discussion with the patient. Her abdominal exam is benign. She is primarily complaining of left gluteal pain. She thinks that it is her sciatic nerve which is very reasonable considering her history of rheumatoid arthritis. She was initially concerned that maybe her endometriosis had migrated into her back and was pushing on her nerve. This is very unlikely. CT scan does not show any signs of injury or fracture. I offered admission for pain control and further workup. The patient states she would prefer to go home with pain medicine and follow up with her outpatient doctors. She does not have any weakness or numbness. I agree that this is reasonable. Will give her pain medication prescriptions. We discussed indications for returning such as worsening symptoms or fever or numbness or incontinence etc. ( Donavan Tejeda) - Objective Vital Signs: Initial Vital Signs Temperature (C) 36.6 C 08/10/18 08:33 Heart Rate 93 08/10/18 08:33 Respiratory Rate 19 08/10/18 08:33 Blood Pressure 110/74 08/10/18 08:33 O2 Sat (%) 97 08/10/18 08:33 O2 Delivery Mode Room Air Allergies/Adverse Reactions: Penicillins Allergy (Severe, Verified 03/15/18 21:16) Anaphylaxis codeine [Codeine] Allergy (Unknown, Verified 03/15/18 21:16) Rash/ Severe vomiting ketorolac Allergy (Unknown, Verified 03/15/18 21:16) GI Bleed hydrocortisone Allergy (Verified 03/15/18 21:16) Doesn't tolerate hydromorphone [From Dilaudid] Allergy (Verified 03/15/18 21:16) Psycological changes Sulfa (Sulfonamide Antibiotics) [Sulfa(Sulfonamide Antibiotics)] Allergy ( Verified 03/15/18 21:16) Hives Home Medications: Medication Instructions Recorded Albuterol Sulfate [Ventolin Hfa] 2 puffs IH Q4 PRN 03/15/18 Azithromycin [Zithromax] 250 mg PO DAILY #6 tab 03/29/18 oxyCODONE/APAP 5/325 [Percocet 1 - 2 tab PO Q6H PRN #10 tab 08/10/18 5/325 (*)] Laboratory Results: Laboratory Results 08/10/18 09:28 08/10/18 09:28 Medications Given: Discontinued Medications Fentanyl (Sublimaze) 50 mcg IVP ONCE ONE Stop: 08/10/18 09:14 Last Admin: 08/10/18 11:02 Dose: Not Given Sodium Chloride (Ns) 1,000 mls @ 0 mls/hr IV ONCE ONE PRN Reason: Wide Open Stop: 08/10/18 09:14 Last Admin: 08/10/18 09:32 Dose: 1,000 mls Morphine Sulfate (Morphine) 4 mg IVP EDNOW ONE Stop: 08/10/18 10:01 Last Admin: 08/10/18 09:57 Dose: 4 mg Oxycodone/Acetaminophen (Percocet 5/325) 1 tab PO EDNOW ONE Stop: 08/10/18 12:36 Last Admin: 08/10/18 12:54 Dose: 1 tab Departure - Departure Disposition: Home, Routine, Self-Care Clinical Impression: Abdominal pain, Hip pain, left Condition: Good Instructions: Abdominal Pain (ED), Hip Pain (ED) Additional Instructions: DISCHARGE INSTRUCTIONS FROM YOUR DOCTOR Thank you for visiting our emergency department today. Please keep in mind that discharge from the emergency department does not mean that there is nothing wrong - it simply means that we have not identified an emergency condition that requires further evaluation or treatment in the hospital. Please call to schedule a follow-up appointment with your primary care provider in 1-2 days. You have been prescribed Percocet which is a narcotic. Please do not drive or operate machinery while taking this medication as it may make you drowsy. It can also be habit forming. This medication can also cause constipation, recommend taking 100 mg of Colace twice daily while taking this medication. This medication also contains Tylenol, please do not take other Tylenol containing products with this medication. People present with illnesses and injuries in different ways, and it is always possible that we have missed something. You may always return for re-evaluation if symptoms worsen or if they are not improving or if you develop new/different symptoms. Again, thank you for choosing our emergency department. We hope that you feel better. Referrals: Linda Bland MD [Primary Care Provider] - 1-2 days without fail (Please call today to schedule an appointment for repeat examination 1-2 days) Prescriptions: oxyCODONE/APAP 5/325 [Percocet 5/325 (*)] 1 - 2 tab PO Q6H PRN #10 tab PRN Reason: Pain, Severe
[2018-08-10 09:45] LABS: PLATELET COUNT 424 10^3/uL (150-400)
[2018-08-10] MEDS ORDERED: IOHEXOL 300 mgI/ML (OMNIPAQUE) 150 ML BTL IV ONE (10:06)
[2018-08-10] MEDS ORDERED: OXYCODONE/APAP 5/325 TAB PO ONE (12:35)
[2018-08-10 12:56] VITALS: BP 107/61
== END 2018-08-10 12:56 | disposition home or self-care (01) ==
DX: R10.0 Acute abdomen (principal); M25.552 Pain in left hip; M06.9 Rheumatoid arthritis, unspecified; K50.90 Crohn's disease, unspecified, without complications
CPT/HCPCS: 96374; J2270; J3010; Q9967

== ENCOUNTER 2018-09-16 17:30 | Inpatient (IN) | payer MEDICAID ==
[2018-09-16] MEDS ORDERED: NS 1,000 ML IV ONE (18:07)
[2018-09-16] MEDS ORDERED: IPRATROPIUM/ALBUTEROL 3 ML DEYVIAL IH ONE (18:07)
--- NOTE | 2018-09-16 18:12 | EDPHY ---
General Time Seen by Provider: 09/16/18 17:49 Narrative: CLINICAL IMPRESSION: Left upper lobe pneumonia, shortness of breath, productive cough ASSESSMENT/PLAN: 42-year-old female with past medical history of interstitial lung disease, previous spontaneous pneumothorax x2, history of pneumonia, as well as RA and Crohn's disease presents to the emergency department with approximately 10-12 days of cough, shortness of breath, wheezing, fever and chills. Patient reports "I felt so sick tonight I thought I was going to ". She arrives with dyspnea and tachypnea but no hypoxia, tachycardia or fever. Sepsis protocol initiated. Lactate of 1.5, leukocytosis of 11, no renal insufficiency , electrolyte imbalance, metabolic disturbance. She received 1 L fluid and a DuoNeb as well as morphine for pain along previous incision site from chest tube with significant improvement in her symptoms. Chest x-ray shows interstitial lung disease with a new left upper lobe infiltrate suspicious for pneumonia. Patient adamantly refuses to take any oral antibiotics stating " they cause severe abdominal pain and bloody stools and I have already had 6 abdominal surgeries for Crohn's". Specifically, patient refuses to take azithromycin, Levaquin and reports anaphylaxis to penicillin. She states in the past she has only received IV antibiotics x1 dose for infections and treats pneumonia with honey and tumurric. Given patient's chronic underlying medical conditions and new pneumonia I feel she would be best served by admission. Case discussed with Dr. Haskins and Dr. Taylor from hospitalist service. I also reviewed patient's history with ED pharmacist Ritchie. She was started on doxycycline. I withheld ceftriaxone given a reported history of anaphylaxis with penicillin. She is not requiring oxygen at this time. She was stabilized in the ED prior to admission. DIFFERENTIAL DX: Differential includes but not limited to pneumonia, sepsis, bronchitis, influenza, viral respiratory illness, pneumothorax, PE ED PROCEDURES: See lab and/or imaging results below ED COURSE: 6:00 p.m.:. Patient seen and assessed by myself. Plan for chest x-ray, DuoNeb , IV fluid bolus, lactate, lab and flu test CHIEF COMPLAINT: Cough, shortness of breath, intermittent fever and chills x2 weeks HPI: 42-year-old female with reported past medical history of degenerative MAC, multiple bouts of pneumonia, spontaneous pneumothorax, Crohn's disease and other autoimmune conditions, presents to the emergency department with 1.5 weeks of intermittent fevers, chills, shortness of breath and worsening cough. Patient is followed normally by [facility], a physician "whose name starts with B but I cannot pronounce". No reported underlying history of asthma or regular use of inhalers. She had ill family members at home recently who have all gotten better but her symptoms have persisted. She has not seen anybody for her illness, including her local primary care doctor, Dr. Andrade, because she thought she could find it on her own at home. She reports documented fevers as high as 102. She reports inflamed lymph nodes "all over her body". No reports of worsening abdominal pain, nausea, vomiting, diarrhea or bloody stools. She does report a history of DVTs during ICU admission for pneumothorax and was on anticoagulation therapy but does not report a history of pulmonary emboli. She is not currently anticoagulated. PAST MEDICAL HISTORY: Degenerative MAC, history of spontaneous pneumothorax x2, recurrent pneumonia, Crohn's disease, autoimmune disease, endometriosis, RA See nurse/triage notes for additional history if applicable Pertinent Past Surgical History: Hysterectomy, intestinal surgery Family History: Noncontributory Social History: Nonsmoker, , here with her son REVIEW OF SYSTEMS: All other systems negative Constitutional: Positive for fever, chills and appetite change. Eyes: No discharge, vision change ENT: No sore throat, positive for congestion, ear pain. Cardiovascular: Positive for chest wall pain at sites of previous chest tubes, no palpitations. Respiratory: Positive for cough and shortness of breath. Gastrointestinal: Chronic, unchanged abdominal pain, no vomiting, diarrhea. Genitourinary: No hematuria, dysuria, flank pain, pelvic pain Musculoskeletal: No back pain, joint swelling, joint pain, myalgias. Skin: No rashes, color change. Neurological: No headache, dizziness, positive for weakness. PHYSICAL EXAM: General Appearance: Alert, oriented, ill-appearing, tachypneic, speaking in only 6 word sentences before having to cough, appears uncomfortable, no hypoxia , tachycardia, afebrile, hypotensive on arrival at 87/64, systolic pressure during my interview is 105 HEENT: TMs are clear bilaterally no perforation or FB, no injection, no evidence of serous or mucopurulent otitis. Oropharynx clear is with mild erythema no exudates, no tonsillar hypertrophy or asymmetry. Dentition without abnormality. Eyes: PERRLA, no acute vision change, nystagmus, swelling, discharge, pain or photosensitivity. Conjunctiva pink, no pallor or injection Neck: Supple, nontender, no midline pain, FROM, no meningismus. No significant lymphadenopathy appreciated, no supraclavicular lymphadenopathy Respiratory: Expiratory crackles noted in bilateral lower lobes, diminished breath sounds throughout, pain to palpable along right lateral chest wall at site of prior chest tube placements Cardiac: Regular rate and rhythm, no murmurs or gallops. Gastrointestinal: Abdomen is soft, nontender, bowel sounds normal, no masses/ hernia, no rigidity, guarding or focal peritoneal findings. Neurological: [ Alert and oriented x 3, CN 2-12 grossly intact Skin: Warm, dry, no rashes, no nodules on palpation. Musculoskeletal: Extremities are symmetrical, full range of motion, no tenderness, deformity, swelling, or erythema. No asymmetric calf pain, swelling or erythema Psychiatric: Patient is oriented X 3, there is no agitation. MEDICAL DECISION MAKING: Patient was seen independently. Secondary supervising physician at time of evaluation was Dr. Haskins. Diagnosis: Left upper lobe pneumonia, shortness of breath, productive cough. New, requires workup Summary: See Assessment and Plan for summary of ED visit Clinical lab tests: ordered / reviewed. Independent visualization of images, tracing, or specimens: Yes. Decision to obtain medical records or history from someone other than the patient: No Review / Summarize previous medical records: Reviewed prior admission notes Discussed patient with another provider: Dr. Divine, Dr Killeen Patient Progress Stable for admission. - Diagnostics Imaging Results: Imaging Impressions Chest X-Ray 09/16/18 18:07 Impression: Evidence of underlying interstitial lung disease in both upper lobes, as seen previously. New opacification in the left upper lobe, which could represent superimposed pneumonia. - History Smoking Status: Current every day smoker - Objective Vital Signs: Initial Vital Signs Temperature (C) 37.1 C 09/16/18 17:31 Heart Rate 98 09/16/18 17:31 Respiratory Rate 22 H 09/16/18 17:31 Blood Pressure 87/64 L 09/16/18 17:31 O2 Sat (%) 96 09/16/18 17:31 O2 Delivery Mode Room Air Allergies/Adverse Reactions: Penicillins Allergy (Severe, Verified 03/15/18 21:16) Anaphylaxis codeine [Codeine] Allergy (Unknown, Verified 03/15/18 21:16) Rash/ Severe vomiting ketorolac Allergy (Unknown, Verified 03/15/18 21:16) GI Bleed hydrocortisone Allergy (Verified 03/15/18 21:16) Doesn't tolerate hydromorphone [From Dilaudid] Allergy (Verified 03/15/18 21:16) Psycological changes Sulfa (Sulfonamide Antibiotics) [Sulfa(Sulfonamide Antibiotics)] Allergy ( Verified 03/15/18 21:16) Hives Home Medications: Medication Instructions Recorded Albuterol Sulfate [Ventolin Hfa] 2 puffs IH Q4 PRN 03/15/18 Ergocalciferol [Vitamin D2 (*)] 50,000 unit PO TU 09/16/18 Herbals/Supplements -Info Only 1 each PO DAILY 09/16/18 Laboratory Results: Laboratory Results 09/16/18 18:23 09/16/18 18:23 09/16/18 09/16/18 09/16/18 18:23 18:23 18:23 WBC 11.14 10^3/uL H 10^3/uL (3.80-9.50) RBC 4.63 10^6/uL 10^6/uL (4.18-5.33) Hgb 12.4 g/dL L g/dL (12.6-16.3) Hct 38.1 % % (38.0-47.0) MCV 82.3 fL fL (81.5-99.8) MCH 26.8 pg L pg (27.9-34.1) MCHC 32.5 g/dL g/dL (32.4-36.7) RDW 13.7 % % (11.5-15.2) Plt Count 396 10^3/uL 10^3/uL (150-400) MPV 8.6 fL L fL (8.7-11.7) Neut % (Auto) 67.5 % % (39.3-74.2) Lymph % (Auto) 21.7 % % (15.0-45.0) Green % (Auto) 9.0 % % (4.5-13.0) Eos % (Auto) 1.3 % % (0.6-7.6) Baso % (Auto) 0.1 % L % (0.3-1.7) Nucleat RBC Rel Count 0.0 % % (0.0-0.2) Absolute Neuts (auto) 7.52 10^3/uL H 10^3/uL (1.70-6.50) Absolute Lymphs (auto) 2.42 10^3/uL 10^3/uL (1.00-3.00) Absolute Monos (auto) 1.00 10^3/uL H 10^3/uL (0.30-0.80) Absolute Eos (auto) 0.15 10^3/uL 10^3/uL (0.03-0.40) Absolute Basos (auto) 0.01 10^3/uL L 10^3/uL (0.02-0.10) Absolute Nucleated RBC 0.00 10^3/uL 10^3/uL (0-0.01) Immature Gran % 0.4 % % (0.0-1.1) Immature Gran # 0.04 10^3/uL 10^3/uL (0.00-0.10) PT 13.6 SEC SEC (12.0-15.0) INR 1.08 (0.83-1.16) APTT 34.1 SEC SEC (23.0-38.0) VBG Lactic Acid 1.5 mmol/L mmol/L (0.7-2.1) Sodium Potassium Chloride Carbon Dioxide Anion Gap BUN Creatinine Estimated GFR Glucose Calcium Total Bilirubin Nasal Influenza A PCR Nasal Influenza B PCR 09/16/18 09/16/18 18:23 18:20 WBC RBC Hgb Hct MCV MCH MCHC RDW Plt Count MPV Neut % (Auto) Lymph % (Auto) Green % (Auto) Eos % (Auto) Baso % (Auto) Nucleat RBC Rel Count Absolute Neuts (auto) Absolute Lymphs (auto) Absolute Monos (auto) Absolute Eos (auto) Absolute Basos (auto) Absolute Nucleated RBC Immature Gran % Immature Gran # PT INR APTT VBG Lactic Acid Sodium 136 mEq/L mEq/L (135-145) Potassium 3.9 mEq/L mEq/L (3.5-5.2) Chloride 99 mEq/L mEq/L (97-110) Carbon Dioxide 27 mEq/l mEq/l (22-31) Anion Gap 10 mEq/L mEq/L (6-14) BUN 11 mg/dL mg/dL (7-23) Creatinine 0.7 mg/dL mg/dL (0.6-1.0) Estimated GFR > 60 Glucose 102 mg/dL H mg/dL (70-100) Calcium 9.4 mg/dL mg/dL (8.5-10.4) Total Bilirubin 0.2 mg/dL mg/dL (0.1-1.4) Nasal Influenza A PCR Cancelled Nasal Influenza B PCR Cancelled Microbiology Results: MICROBIOLOGY 09/16/18 18:20 Nasal, Sinus - Swab Respiratory Panel (PCR) - Final No Organism Detected By Pcr Medications Given: Discontinued Medications Albuterol/Ipratropium (Duoneb) 3 ml IH EDNOW ONE Stop: 09/16/18 18:08 Last Admin: 09/16/18 18:36 Dose: 3 ml Sodium Chloride (Ns) 1,000 mls @ 0 mls/hr IV EDNOW ONE; Wide Open PRN Reason: Protocol Stop: 09/16/18 18:08 Last Admin: 09/16/18 18:36 Dose: 1,000 mls Doxycycline Hyclate 100 mg/ (Sodium Chloride) 260 mls @ 260 mls/hr IV Q12HRS PAT PRN Reason: Protocol Stop: 10/16/18 20:59 Last Admin: 09/16/18 20:49 Dose: 260 mls Morphine Sulfate (Morphine) 4 mg IVP EDNOW ONE Stop: 09/16/18 19:03 Last Admin: 09/16/18 19:11 Dose: 4 mg Departure - Departure Disposition: [facility]
[2018-09-16 18:39] LABS: PLATELET COUNT 396 10^3/uL (150-400)
[2018-09-16 18:46] LABS: INR 1.08 (0.83-1.16); PROTIME(PATIENT) 13.6 SEC (12.0-15.0)
[2018-09-16] MEDS ORDERED: ACETAMINOPHEN 325 MG TAB PO PRN ×2 (20:56→21:43)
[2018-09-16] MEDS ORDERED: DOXYCYCLINE INJ 100 MG in NS 250 ML IV SCH (21:00)
[2018-09-16] MEDS ORDERED: levOFLOXACIN 500 MG/DEXTROSE 100 ML IV SCH (21:30)
[2018-09-16] MEDS ORDERED: HYDROmorphONE/DILAUDID 1 MG/ML INJ IVP PRN (21:43)
[2018-09-16] MEDS ORDERED: HYDROCODONE/APAP 5/325 TAB PO PRN (21:43)
[2018-09-16] MEDS ORDERED: oxyCODONE IR 5 MG TAB PO PRN (21:43)
[2018-09-16] MEDS ORDERED: IOPAMIDOL (ISOVUE-300) 100 ML BTL ONE (21:47)
--- NOTE | 2018-09-16 22:12 | GHP ---
[f rep st] HISTORY AND PHYSICAL DATE OF ADMISSION: 09/16/2018 CHIEF COMPLAINT: Cough. HISTORY OF PRESENT ILLNESS: This is a complicated 42-year-old female who presents with a few weeks of feeling sick. She has a history of Crohn's disease as well as an interstitial lung disease which she says she is followed at [facility]. She tells me that it is "degenerative MAC." She does describe it as a Mycobacterium-type organism. She has never been treated with antibiotics for this. She also tells me that she was diagnosed with emphysema as well as COPD. She had friends who were diagnosed with influenza A about a week ago. She also felt as though she were sick. She has been coughing ever since. She has felt very run down, fatigued. Unclear if she has had any fevers. She has a history of chest tubes in 2006 at which time she had a spontaneous pneumothorax from a bleb rupture. She gets pain in her right chest when she coughs from this. She thus has felt as though she has been unable to clear her secretions. PAST MEDICAL-SURGICAL HISTORY: 1. Interstitial lung disease, as above. 2. Crohn's disease, status post bowel resections. 3. Rheumatoid arthritis. 4. Endometriosis. MEDICATIONS: Please see medication reconciliation. ALLERGIES: Penicillin, codeine, Toradol, hydrocortisone, hydromorphone, sulfa. FAMILY HISTORY: Reviewed and noncontributory. SOCIAL HISTORY: She does not drink or smoke. She uses cannabis oil to treat her Crohn's and other maladies. REVIEW OF SYSTEMS: A 10-point review of systems is conducted and is negative except per HPI. PHYSICAL EXAM: VITAL SIGNS: Blood pressure 93/63, heart rate 79, respiration rate 18, saturating 97% on room air, temperature 37.1. GENERAL: A pleasant female who is resting comfortably. She appears somewhat dyspneic. HEENT: Shows her to be normocephalic, atraumatic. CARDIOVASCULAR: Regular rate and rhythm. No murmurs, rubs, or gallops. PULMONARY: Crackles in the left upper lobe. She has some wheezes that are scant in the expiratory phase. ABDOMEN: Deferred. SKIN: No rash. : No Cherry. NEUROLOGIC: Shows her to be alert and oriented x3. She is moving all extremities. PSYCHIATRIC: Mildly depressed appearing. DATA REVIEWED: Labs show white count of 11. Lactate of 1.5. Basic metabolic panel is normal. I reviewed her chest x-ray. This shows a left upper lobe infiltrate, although I compare this to her old CT scan which shows a significant cavitary lesion in that same area. I discussed with discussed with the ED physician and will admit to med-surg. IMPRESSION AND PLAN: 1. Respiratory symptoms: I am unclear if there is an acute bacterial process at this point. She has quite marked underlying interstitial lung disease. Left upper lobe infiltrate seen on chest x-ray correlates to an old cavitary lesion seen on CAT scan. I think it is reasonable to obtain a new CT scan to better characterize the current process as well as her chronic process. I think it is reasonable to treat her for community-acquired pneumonia with Levaquin at this point. She has multiple allergies to p.o. antibiotics; however , she tells me that she believes she has tolerated IV Levaquin in the past and is interested in trying it. I will start her on 500 mg instead of 750 because of the allergic concern which was primarily diarrhea. We may to involve Pulmonology will request records from [facility] to further characterize her pathology. 2. Crohn's disease: Appears to be quiescent at this time. /[id number]/MODL MTDD
[2018-09-16] MEDS: IPRATROPIUM/ALBUTEROL 3 ML DEYVIAL IH SCH (23:27)
[2018-09-17] MEDS: levOFLOXACIN 500 MG/DEXTROSE 100 ML IV SCH ×2 (01:05→20:53)
[2018-09-17] MEDS: ONDANSETRON 4 MG/2 ML VIAL IVP PRN ×3 (02:42→18:39)
[2018-09-17 04:53] LABS: PLATELET COUNT 294 10^3/uL (150-400)
[2018-09-17] MEDS: IPRATROPIUM/ALBUTEROL 3 ML DEYVIAL IH SCH ×4 (08:11→21:04)
--- NOTE | 2018-09-17 11:41 | ASMTCMCOM ---
CM Note CM Note Notes: 09/17/2018 Case Management Note Discussed pt during rounds this morning. Pt admitted for possible pneumonia and shortness of breath with history of Crohn's disease and interstital lung disease. OT eval pending. Referred pt to [facility] for follow after discharge. Case Management d/c poc: anticipating independent with follow up as directed. Case Management will follow. Date Signed: 09/17/2018 11:40 AM Electronically Signed By:Amelia Esparza RN
[2018-09-17] MEDS: SODIUM CL FOR INH 10% 15 ML VIAL.NEB IH SCH ×3 (13:50→21:04)
--- NOTE | 2018-09-17 15:09 | HOSPPROG ---
Hospitalist Progress Note Assessment/Plan: DIAGNOSES: * 2 weeks illness with cough fatigue malaise weakness, ? Viral, verses possible worsening of her chronic condition * Interval progression since in September 2017 of chronic cavitary lung disease particularly left upper lobe, diagnosed elsewhere as non tuberculous mycobacteria, though I do not have specific diagnostic information * Chronic right-sided pleuritic chest pain that sounds neuritic, currently with a fairly acute increase in this pain during coughing with her onset of acute symptoms over the past week * Immuno deficiency with Crohn's disease and rheumatoid arthritis * Currently no evidence of an acute bacterial infection specifically with no fever, no specific bacterial appearing infiltrates on lung studies, negative respiratory pathogen panel The patient believe she has a viral respiratory illness acutely as her children were ill with flu-like illness and this may well be the case. Respiratory pathogen panel however is negative at this time. Her symptoms started 2 weeks ago and it may be that she is resolving to the point where the test is negative. However is very clear that her chronic lung disease is progressive and it may well be that her worsening cough is related to this illness. Her illness was initially diagnosed in 2017 in [place] as a non mycobacterial disease, and she was told that she had 12-18 months to live, which she has clearly out lived at this time. She is currently followed at [facility] by Dr. Niru Benavides (infectious disease). The patient is not currently on any therapy for her cavitary lung disease. She tells me that she is very intolerant of oral medications (at this point in her life she is actually quite resistant to the idea of using just about any medication). I am not certain what mycobacterial disease she has if it is specifically known, or what specific treatments have been offered or tried. She is not having any respiratory failure in fact is not at all hypoxemic and looks very relaxed with her respirations. However this disease at its rate of progression over time will clearly lead to decrease lung tissue, pulmonary hypertension, and likely respiratory failure if something else does not happen. Notably she is immune suppressed which is probably why she has this disease and will aggravate the tendency to progression. The immune deficiency is due to her Crohn's disease and rheumatoid arthritis, both of which are relatively quite quiescent at this time, with her not taking any prescribed medicines for these for quite some time now. She expresses that she is very frustrated with trying to get care and having to see too many doctors without coordination of care. Unfortunately the best team to manage her infection is at [facility] in [place] and while she could see physicians here her best care would come from the doctors in [place]. PLANS: * I am attempting to get in touch with Dr. Benavides at [facility] to get more specific diagnostic information from her past if assessments * I have asked Dr. Catrachito Harvey to see her here from pulmonology * I believe that most likely which she really needs to get back to see her doctors at [facility] for management of her respiratory issues, but will trying get more specific information about what's going on * Will try Lidocaine gel for her pleuritic ribcage pain * moderate protein calorie malnutrition SUBJECTIVE: Still has cough more than usual chronic cough Still has significant neuritic sending pleuritic chest pain right lateral side, and aggravation of her chronic pain that is there No sweats or rigors here No nausea, eating well Not short of breath OBJECTIVE Vitals reviewed: No fevers at all so far, otherwise stable vitals Oxygen: No hypoxemia on room air so far Agency Manager, my review: Exam: alert oriented skin warm dry color ok Fairly thin with poor lean muscle mass resps not labored lungs course BSs, no wheeze heart regular abd soft nondistended nontender, bowel sounds present limbs warm, no edema iv site ok Lab data: WBC now at 8000 Hemoglobin slightly low at 11 Normal basic metabolic panel Respiratory pathogen panel negative Influenza test negative by PCR Imaging: I reviewed the images from her chest CT scan in detail and compared with the images from CT of September 2017, and I reviewed these images in detail with Dr. Harvey. She has a chronic cavitary lung process primarily in the left upper lobe also with a smaller lesion in the right upper lobe. Compared to 2018 this disease has advanced quite a bit in his extent and occupies and his destroyed a fair portion of the upper parts of the left upper lobe. There are few peripheral emphysematous blebs. There is nothing that looks like an acute infiltrate of bacterial disease or viral disease. There a lot of small nodular changes in the left upper lobe that appeared to be caused by the same illness causing the larger cavitary lesions. Objective: Vital Signs Temp Pulse Resp BP Pulse Ox 36.5 C 61 16 98/64 L 96 09/17/18 11:26 09/17/18 11:26 09/17/18 11:26 09/17/18 11:26 09/17/18 11:26 Laboratory Results 09/17/18 03:48 09/17/18 03:48 09/16/18 09/17/18 09/18/18 06:59 06:59 06:59 Intake Total 1450 Balance 1450 PT 13.6 SEC (12.0-15.0) 09/16/18 18:23 INR 1.08 (0.83-1.16) 09/16/18 18:23 - Time Spent With Patient Time Spent with Patient: greater than 35 minutes Time Spent with Patient: Greater than 35 minutes spent on this patients care, greater than 50% of time spent counseling, educating, and coordinating care regarding the above mentioned plan. ICD10 Worksheet Patient Problems: Problems Problem Status Onset Chest pain Acute Crohn disease Acute
[2018-09-17] MEDS ORDERED: LR 1,000 ML IV ONE (17:23)
[2018-09-17] MEDS ORDERED: LR 2,000 ML IV ONE (17:30)
--- NOTE | 2018-09-17 18:04 | PDCONSULT ---
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 # bronchiectasis exacerbation. recent URI symptoms. May have bacterial superinfection. Clinically improving on Levaquin # MAC infection. Severe. Initially diagnosed in 2017 on bronchoscopy at [facility]. She never underwent treatment because she feels she is unable to tolerate oral antibiotics. Of note she is able to tolerate IV antibiotics. TB has previously been ruled out # Crohn's disease. Has had multiple surgeries for both complications of Crohn' s disease as well as endometriosis. Currently in remission per report. Not on immunosuppression # rheumatoid arthritis. Per report. No arthritic changes on my exam # cannabis dependence. Uses copious CBD oils and VAPE pen PLAN # AVOID MACROLIDES # AFB sputum smear and culture x 3 # bacterial and fungal cultures # CPT including duonebs followed by 3% hypertonic saline and flutter valve # if unable to expectorate adequate sputum will bronch # agree with levaquin, as patient may have new bacterial infection and is clinically improving # I doubt her allergies listed to oral antibiotics are true allergies and more likely intolerances # her disease is severe progressive and without antibiotic therapy she will eventually succumb to her progressive cavitary lung disease # she is agreeable to entertain the idea of treatment however wishes to be treated in [place] is a post [facility]. I discussed with her that Nirali Sousa of Infectious Disease will treat NTN patients # will not repeat immunodeficiency in HIV workup as this is already been done per report [facility]. # obtain records from [facility] CX Data none IMAGING 09/16/2018 CT chest CONSULT I was asked by Dr. Gamez of Hospital Medicine to evaluate this patient for non tuberculous mycobacterial disease and bronchiectasis exacerbation Chief complaint Cough ANU Al is a very pleasant complicated 42-year-old female who presents to [facility] with 2-3 weeks of feeling ill and mildly increased dyspnea exertion as well as recent URI symptoms. She has a history of Crohn's disease, rheumatoid arthritis and endometriosis and previously been on immunosuppression underwent multiple abdominal surgeries. She also has cannabis dependence and uses a vape pen daily as well as CBD oils. She was initially diagnosed with MAC at [facility] via bronchoscopy in 2017. She states she is intolerant oral antibiotics and has never received treatment for this. She has centrally been lost to follow-up till then. She complains of chronic daily productive sputum mildly decreased exercise tolerance. She does not require are supple oxygen. She she denies hemoptysis, fevers, rash, joint pains. She complains of chronic daily abdominal pain, anxiety Allergies Oral antibiotics multiple narcotics although she does tolerate morphine MEDS CBD oils. MED HX Bronchiectasis, mac, Crohn's disease, rheumatoid arthritis, endometriosis, multiple abdominal surgeries in bowel resections, prior chest tube for pneumothorax Social history Lives with sons in [facility]. Does not stay smoke cigarettes or drink. She uses cannabis daily Family history No family history of severe mac ROS A comprehensive 10 point review of systems was obtained is negative except as per HPI EXAM vitals reviewed. Notable a normal room air saturation GEN: NAD, up in chair, interactive NEURO: A&Ox3, CN 2-12 GI HEENT: PERRL, EOMI, MMM, OP clear NECK: supple, trachea midline CHEST normal shape, no pes excavatum CVS: rrr no m/r/g PULM: CTA B, no wheezes/rales/rhonchi ABD: Multiple abdominal scars, NT, ND, NABS EXT: no swelling, no cyanosis, full ROM SKIN: warm, dry, intact, no rash PSYCH CAM negative, appropriate affect LABS reviewed and interpreted
[2018-09-18] MEDS: ONDANSETRON 4 MG/2 ML VIAL IVP PRN ×2 (03:54→21:44)
[2018-09-18] MEDS: IPRATROPIUM/ALBUTEROL 3 ML DEYVIAL IH SCH (06:40)
[2018-09-18] MEDS: SODIUM CL FOR INH 10% 15 ML VIAL.NEB IH SCH ×4 (06:41→20:19)
--- NOTE | 2018-09-18 08:16 | PDMN ---
Medical Necessity Medical necessity: Change to IP, as of 09/17/18, per MD & MCG MG-PUL Pulmonary Disease los >2 mn for ongoing management of bronchiectasis exacerbation & progression of MAC disease; requiring further workup/monitoring, IV abx & Pulmonology consult; hx Crohns, RA
--- NOTE | 2018-09-18 13:24 | PDINTPN ---
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 # bronchiectasis exacerbation. recent URI symptoms. May have bacterial superinfection. Clinically improving on Levaquin # MAC infection. Severe. Initially diagnosed in [address] [facility]. She never underwent treatment because she feels she is unable to tolerate oral antibiotics. Of note she is able to tolerate IV antibiotics. TB has previously been ruled out. # Crohn's disease. Has had multiple surgeries for both complications of Crohn' s disease as well as endometriosis. Currently in remission per report. Not on immunosuppression # rheumatoid arthritis. Per report. No arthritic changes on my exam # cannabis dependence. Uses copious CBD oils and VAPE pen # chronic pain. requests opioids. would be better suited on cymbalta, nortriptyline or similar due to underlying mood disorder and risk for abuse PLAN # AVOID MACROLIDES # AFB sputum smear and culture x 3 # bacterial and fungal cultures # CPT including duonebs followed by 3% hypertonic saline and flutter valve # agree with levaquin, as patient may have new bacterial infection and is clinically improving # continue 5-7 day total course of levaquin, IV or PO # I doubt her allergies listed to oral antibiotics are true allergies and more likely intolerances # her disease is severe progressive and without antibiotic therapy she will eventually succumb to her progressive cavitary lung disease # she is agreeable to entertain the idea of treatment however wishes to be treated in [place] is a post [facility]. I discussed with her that Nirali Sousa of Infectious Disease will treat N patients but given her cavitating disease she may need surgery as well and would be better served at [place] where they have access to a thoracic surgeon who routinely operates on patients like her # will not repeat immunodeficiency in HIV workup as this is already been done per report [facility]. # obtain records from [facility] Subjective: Less sputum production today. Dislikes hypertonic saline nebs but extectorate a fair amount of sputum with them. Still tolerating Levaquin without symptoms Still with atypical chest pain, anxiety and requesting IV pain meds Objective: Vital Signs Temp Pulse Resp BP Pulse Ox 36.9 C 79 17 104/57 L 99 09/18/18 07:42 09/18/18 10:57 09/18/18 10:57 09/18/18 07:42 09/18/18 10:57 Microbiology 09/17/18 21:05 - Final Sputum, Expectorated 09/17/18 09/18/18 09/19/18 05:59 05:59 05:59 Intake Total 1350 Balance 1350 PT 13.6 SEC (12.0-15.0) 09/16/18 18:23 INR 1.08 (0.83-1.16) 09/16/18 18:23 Physical Exam - Physical Exam General Appearance: alert, anxiety EENT: PERRL/EOMI, normal ENT inspection, pharynx normal Neck: non-tender, full range of motion Respiratory: chest non-tender, lungs clear Cardiac/Chest: normal peripheral pulses, regular rate, rhythm Abdomen: normal bowel sounds, non-tender, other (Midline incision scars) Back: Normal inspection Skin: normal color, warm/dry Extremities: normal range of motion, non-tender, normal inspection Neuro/Psych: no motor/sensory deficits, alert, normal mood/affect, oriented x 3 ICD10 Worksheet Patient Problems: Problems Problem Status Onset Chest pain Acute Crohn disease Acute
[2018-09-18] MEDS ORDERED: ALTEPLASE 2 MG VIAL IVP PRN (16:16)
--- NOTE | 2018-09-18 16:33 | HOSPPROG ---
Hospitalist Progress Note Assessment/Plan: 42 year old female with PMH of crohns, ILD, likely MAC, who presented with pleuritic pain and increased cough. Bronchiectasis exacerbation- I reviewed her CT and CXR, and discussed her case with pulmonology. She is currently on levaquin, and may have a superimposed bacterial infection although she does not appear acutely ill aside from her increase in pain. Will continue levaquin for a 5-7 day course. patient refusing oral medications at this point saying she cannot tolerate them. she has refused treatment for MAC in the past saying it needed to be IV as well. Demanding IV pain medications saying oral causes her to have GI bleeds. MAC- severe. Diagnosed at [facility] in 2017. TB previously ruled out. Refused treatment saying she could not take oral medications but is tolerating IV fine. AFB X 3 ordered, pulm has seen and advised her that she will likely without treatment but patient remains adamant that she must have an IV regimen. -AFB pending - bacterial/fungal cultures pending -CPT and 3% saline and flutter valve. Crohns- in remission per report. Chronic pain- demanding IV pain medications, saying oral narcotics cause her to have GI bleeds. PPX- SCds, ambulate TID Fluids-PO Lytes- WNl Nutrition- regular Cor- Full Dispo- inpatient Subjective: lungs hurt with breathing. Objective: Vital Signs Temp Pulse Resp BP Pulse Ox 36.8 C 69 18 100/60 95 09/18/18 16:00 09/18/18 16:00 09/18/18 16:00 09/18/18 16:00 09/18/18 16:00 Microbiology 09/17/18 21:05 - Final Sputum, Expectorated 09/17/18 09/18/18 09/19/18 05:59 05:59 05:59 Intake Total 1350 Balance 1350 PT 13.6 SEC (12.0-15.0) 09/16/18 18:23 INR 1.08 (0.83-1.16) 09/16/18 18:23 - Physical Exam Constitutional: no apparent distress, appears nourished, not in pain Eyes: PERRL, anicteric sclera, EOMI Ears, Nose, Mouth, Throat: moist mucous membranes, hearing normal, ears appear normal, no oral mucosal ulcers Cardiovascular: regular rate and rhythym, no murmur, rub, or gallop Respiratory: reduced air movement, inspiratory crackles Gastrointestinal: normoactive bowel sounds, soft, non-tender abdomen, no palpable masses Genitourinary: no bladder fullness, no bladder tenderness, no renal bruits Skin: no rashes or abrasions, no fluctuance, no induration Musculoskeletal: full muscle strength, no muscle tenderness, normal joint ROM Neurologic: AAOx3, sensation intact bilaterally Psychiatric: interacting appropriately, not anxious, not encephalopathic, thought process linear Lymph, Heme, Immunologic: no cervical LAD, no supraclavicular LAD ICD10 Worksheet Patient Problems: Problems Problem Status Onset Chest pain Acute Crohn disease Acute
[2018-09-18] MEDS ORDERED: NS 1,000 ML IV SCH (21:00)
[2018-09-18] MEDS: levOFLOXACIN 500 MG/DEXTROSE 100 ML IV SCH (21:23)
[2018-09-19] MEDS: ONDANSETRON 4 MG/2 ML VIAL IVP PRN ×5 (02:00→22:34)
[2018-09-19] MEDS: SODIUM CL FOR INH 10% 15 ML VIAL.NEB IH SCH (05:44)
[2018-09-19 06:34] LABS: PLATELET COUNT 294 10^3/uL (150-400)
--- NOTE | 2018-09-19 12:39 | HOSPPROG ---
Hospitalist Progress Note Assessment/Plan: 42 year old female with PMH of crohns, ILD, likely MAC, who presented with pleuritic pain and increased cough. Bronchiectasis exacerbation- on levaquin. AFB reviewed. No TB, but lots of AFB on stain. awaiting final identification. Treating for bacterial overgrowth with levaquin. case complicated by the fact that patient refuses any oral medications. -cont levaquin 5-7 days -explained to patient that she will likely from underlying mac without treatment (she says she will only take IV) -await afb results -pain control MAC- severe. Diagnosed at [place] in 2017. TB previously ruled out. Refused treatment saying she could not take oral medications but is tolerating IV fine. AFB X 3 ordered, pulm has seen and advised her that she will likely without treatment but patient remains adamant that she must have an IV regimen. -AFB pending - bacterial/fungal cultures pending -CPT and 3% saline and flutter valve. Crohns- in remission per report. Chronic pain- demanding IV pain medications, saying oral narcotics cause her to have GI bleeds. PPX- SCds, ambulate TID Fluids-PO Lytes- WNl Nutrition- regular Cor- Full Dispo- inpatient Subjective: still with pleuritic pain. Objective: Vital Signs Temp Pulse Resp BP Pulse Ox 37.0 C 73 18 111/71 93 09/19/18 07:37 09/19/18 07:37 09/19/18 07:37 09/19/18 07:37 09/19/18 07:37 Microbiology 09/18/18 10:00 Mycobacterial Smear (PEEWEE) - Final Sputum, Expectorated Mycobacterium tuberculosis DNA (PCR - Final Pcr Negative For M. Tb Complex 09/18/18 13:00 Mycobacterial Smear (PEEWEE) - Final Sputum, Expectorated 09/17/18 21:05 - Final Sputum, Expectorated Laboratory Results 09/19/18 06:15 09/19/18 06:15 09/18/18 09/19/18 09/20/18 05:59 05:59 05:59 Intake Total 1350 450 Balance 1350 450 PT 13.6 SEC (12.0-15.0) 09/16/18 18:23 INR 1.08 (0.83-1.16) 09/16/18 18:23 - Physical Exam Constitutional: no apparent distress, appears nourished, not in pain Eyes: PERRL, anicteric sclera, EOMI Ears, Nose, Mouth, Throat: moist mucous membranes, hearing normal, ears appear normal, no oral mucosal ulcers Cardiovascular: regular rate and rhythym, no murmur, rub, or gallop Respiratory: reduced air movement, inspiratory crackles Gastrointestinal: normoactive bowel sounds, soft, non-tender abdomen, no palpable masses Genitourinary: no bladder fullness, no bladder tenderness, no renal bruits Skin: no rashes or abrasions, no fluctuance, no induration Musculoskeletal: full muscle strength, no muscle tenderness, normal joint ROM Neurologic: AAOx3, sensation intact bilaterally Psychiatric: interacting appropriately, not anxious, not encephalopathic, thought process linear Lymph, Heme, Immunologic: no cervical LAD, no supraclavicular LAD ICD10 Worksheet Patient Problems: Problems Problem Status Onset Chest pain Acute Crohn disease Acute
--- NOTE | 2018-09-19 14:42 | PDINTPN ---
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 # bronchiectasis exacerbation. recent URI symptoms. May have bacterial superinfection. Clinically improving on Levaquin IV and refuses PO. # MAC infection. Severe. Initially diagnosed in 2017 on bronchoscopy at [facility]. She never underwent treatment because she feels she is unable to tolerate oral antibiotics. Of note she is able to tolerate IV antibiotics. TB has previously been ruled out. # Crohn's disease. Has had multiple surgeries for both complications of Crohn' s disease as well as endometriosis. Currently in remission per report. Not on immunosuppression # rheumatoid arthritis. Per report. No arthritic changes on my exam # cannabis dependence. Uses copious CBD oils and VAPE pen # chronic pain. requests IV opioids. would be better suited on cymbalta, nortriptyline or similar due to underlying mood disorder and risk for abuse PLAN # AVOID MACROLIDES # AFB sputum smear and culture x 3 # bacterial and fungal cultures # CPT including duonebs followed by 3% hypertonic saline and flutter valve # agree with levaquin, as patient may have new bacterial infection and is clinically improving # continue 5-7 day total course of levaquin, IV or PO then discharge # no role for initiating MAC treatment while hospitalized. # I doubt her allergies listed to oral antibiotics are true allergies and more likely intolerances # her disease is severe progressive and without antibiotic therapy she will eventually succumb to her progressive cavitary lung disease # she is agreeable to entertain the idea of treatment however wishes to be treated in [place] is a post [facility]. I discussed with her that Nirali Sousa of Infectious Disease will treat N patients but given her cavitating disease she may need surgery as well and would be better served at [place] where they have access to a thoracic surgeon who routinely operates on patients like her # will not repeat immunodeficiency in HIV workup as this is already been done per report [facility] Subjective: still asking for IV morphine, no BM, still with poductive sputum, mild abd pain , no fevers, no chills, Objective: Vital Signs Temp Pulse Resp BP Pulse Ox 37.0 C 73 18 111/71 93 09/19/18 07:37 09/19/18 07:37 09/19/18 07:37 09/19/18 07:37 09/19/18 07:37 Microbiology 09/18/18 10:00 Mycobacterial Smear (PEEWEE) - Final Sputum, Expectorated Mycobacterium tuberculosis DNA (PCR - Final Pcr Negative For M. Tb Complex 09/18/18 13:00 Mycobacterial Smear (PEEWEE) - Final Sputum, Expectorated 09/17/18 21:05 - Final Sputum, Expectorated Laboratory Results 09/19/18 06:15 09/19/18 06:15 09/18/18 09/19/18 09/20/18 05:59 05:59 05:59 Intake Total 1350 450 Balance 1350 450 PT 13.6 SEC (12.0-15.0) 09/16/18 18:23 INR 1.08 (0.83-1.16) 09/16/18 18:23 Physical Exam - Physical Exam General Appearance: alert, no apparent distress EENT: PERRL/EOMI, normal ENT inspection Neck: non-tender, full range of motion Respiratory: chest non-tender, lungs clear, normal breath sounds Cardiac/Chest: normal peripheral pulses, regular rate, rhythm, edema Abdomen: normal bowel sounds, non-tender, soft Back: Normal inspection Skin: normal color, warm/dry Extremities: normal range of motion, non-tender Neuro/Psych: no motor/sensory deficits, alert, normal mood/affect ICD10 Worksheet Patient Problems: Problems Problem Status Onset Chest pain Acute Crohn disease Acute
[2018-09-19] MEDS ORDERED: ACETAMINOPHEN 650 MG SUPP PR PRN (16:10)
[2018-09-19] MEDS: levOFLOXACIN 500 MG/DEXTROSE 100 ML IV SCH (20:50)
[2018-09-20] MEDS: ONDANSETRON DISINTEGRATING 4 MG TAB PO PRN ×2 (00:47→23:31)
[2018-09-20] MEDS: ONDANSETRON 4 MG/2 ML VIAL IVP PRN ×4 (08:53→22:22)
--- NOTE | 2018-09-20 11:31 | ASMTCMCOM ---
CM Note CM Note Notes: CM spoke to Dr. Jamil. Pt had a PICC line placed on 09/18 because she lost iv access. Pt will most likely complete ivabx during this hospitalization. Pt reports that she is unable to take oral meds. Referral to [facility] made. Pt will most likely d/c independent when medically stable. CM available for changes. Plan: Independent Date Signed: 09/20/2018 11:29 AM Electronically Signed By:GIOVANY Rodriguez
--- NOTE | 2018-09-20 13:58 | HOSPPROG ---
Hospitalist Progress Note Assessment/Plan: 42 year old female with PMH of crohns, ILD, likely MAC, who presented with pleuritic pain and increased cough. Here for IV levaquin for possible bacterial PNA superimposed on underlying MAC. Bronchiectasis exacerbation- on levaquin. AFB smear reviewed. No TB, but lots of AFB on stain. awaiting final identification. Treating for bacterial overgrowth with levaquin. case complicated by the fact that patient refuses any oral medications. She has refused treatment in the past at [facility] saying she can only have IV medications. -cont levaquin 5-7 days (today is day #4) -explained to patient that she will likely from underlying mac without treatment (she says she will only take IV) -await afb results -pain control -pulm following -patient tells me she is not interested in seeing our ID MD who would be able to treat underlying MAC and would like to see her doc in [place] at [facility]. MAC- severe. Diagnosed at [place] in 2017. TB previously ruled out. Refused treatment saying she could not take oral medications but is tolerating IV fine. AFB X 3 ordered, pulm has seen and advised her that she will likely without treatment but patient remains adamant that she must have an IV regimen. -AFB pending - bacterial/fungal cultures pending -CPT and 3% saline and flutter valve. Crohns- in remission per report. Chronic pain- demanding IV pain medications, saying oral narcotics cause her to have GI bleeds. PPX- SCds, ambulate TID Fluids-PO Lytes- WNl Nutrition- regular Cor- Full Dispo- inpatient Subjective: lungs hurt. Otherwise no complaints. Objective: Vital Signs Temp Pulse Resp BP Pulse Ox 37.7 C 73 18 98/60 L 92 09/20/18 08:49 09/20/18 08:49 09/20/18 08:49 09/20/18 08:49 09/20/18 08:49 Microbiology 09/18/18 18:00 Mycobacterial Smear (PEEWEE) - Final Sputum, Expectorated 09/17/18 21:05 - Final Sputum, Expectorated Laboratory Results 09/19/18 06:15 09/19/18 06:15 03/23/19 03/24/19 03/25/19 05:59 05:59 05:59 Intake Total 450 350 Balance 450 350 PT 13.6 SEC (12.0-15.0) 09/16/18 18:23 INR 1.08 (0.83-1.16) 09/16/18 18:23 - Physical Exam Constitutional: no apparent distress, appears nourished, not in pain Eyes: PERRL, anicteric sclera, EOMI Ears, Nose, Mouth, Throat: moist mucous membranes, hearing normal, ears appear normal, no oral mucosal ulcers Cardiovascular: regular rate and rhythym, no murmur, rub, or gallop Respiratory: no respiratory distress, no rales or rhonchi, clear to auscultation Gastrointestinal: normoactive bowel sounds, soft, non-tender abdomen, no palpable masses Genitourinary: no bladder fullness, no bladder tenderness, no renal bruits Skin: no rashes or abrasions, no fluctuance, no induration Musculoskeletal: full muscle strength, no muscle tenderness, normal joint ROM Neurologic: AAOx3, sensation intact bilaterally Psychiatric: interacting appropriately, not anxious, not encephalopathic, thought process linear Lymph, Heme, Immunologic: no cervical LAD, no supraclavicular LAD ICD10 Worksheet Patient Problems: Problems Problem Status Onset Chest pain Acute Crohn disease Acute
--- NOTE | 2018-09-20 15:33 | PDINTPN ---
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 # bronchiectasis exacerbation. recent URI symptoms. May have bacterial superinfection. Clinically improving on Levaquin IV and refuses PO. # MAC infection. Severe. Initially diagnosed in 2017 on bronchoscopy at [facility]. She never underwent treatment because she feels she is unable to tolerate oral antibiotics. Of note she is able to tolerate IV antibiotics. TB has previously been ruled out. # Crohn's disease. Has had multiple surgeries for both complications of Crohn' s disease as well as endometriosis. Currently in remission per report. Not on immunosuppression # rheumatoid arthritis. Per report. No arthritic changes on my exam # cannabis dependence. Uses copious CBD oils and VAPE pen # chronic pain. requests IV opioids. would be better suited on cymbalta, nortriptyline or similar due to underlying mood disorder and risk for abuse PLAN # AVOID MACROLIDES # follow up AFB culture, no need to stay in hospital for final culture results # CPT including duonebs followed by 3% hypertonic saline and flutter valve # agree with levaquin, as patient may have new bacterial infection and is clinically improving # continue 5 day total course of levaquin, IV or PO then discharge # no role for initiating MAC treatment while hospitalized. # I doubt her allergies listed to oral antibiotics are true allergies and more likely intolerances # her disease is severe progressive and without antibiotic therapy she will eventually succumb to her progressive cavitary lung disease # she is agreeable to entertain the idea of treatment and after discussions is agreeable to reestablish care with her infectious disease doctor at [facility]. Given her severe cavitating disease she may need surgery as well and would be better served at [facility] where they have access to a thoracic surgeon who routinely operates on patients like her # will not repeat immunodeficiency in HIV workup as this is already been done per report [facility] CX Data 09/18/18 AFB smear with many organisms, culture pending. MTB pcr probe negative 09/18/18 bacterial culture with mixed oral respiratory ed IMAGING 09/16/2018 CT chest - consistent with severe cavitating non tuberculous mycobacterial disease, worse in left upper lobe Subjective: Continues on IV antibiotics. After multiple discussions with patient she now has decided that she would like to reestablish with her ID provider [facility] regarding treatment. She sounds as if she is willing to reconsider a trial of oral antibiotics for her severe NTM. No new fevers, chills, nausea vomiting chest pain shortness of breath Objective: Vital Signs Temp Pulse Resp BP Pulse Ox 37.7 C 73 18 98/60 L 92 09/20/18 08:49 09/20/18 08:49 09/20/18 08:49 09/20/18 08:49 09/20/18 08:49 Microbiology 09/17/18 21:05 - Final Sputum, Expectorated Sputum Culture - Final 09/18/18 18:00 Mycobacterial Smear (PEEWEE) - Final Sputum, Expectorated Laboratory Results 09/19/18 06:15 09/19/18 06:15 09/19/18 09/20/18 09/21/18 05:59 05:59 05:59 Intake Total 450 350 Balance 450 350 PT 13.6 SEC (12.0-15.0) 09/16/18 18:23 INR 1.08 (0.83-1.16) 09/16/18 18:23 Physical Exam - Physical Exam General Appearance: alert, no apparent distress EENT: PERRL/EOMI, normal ENT inspection Respiratory: chest non-tender, lungs clear, normal breath sounds Cardiac/Chest: normal peripheral pulses, regular rate, rhythm, No edema Abdomen: other (Nondistended, no guarding, no mass) Back: Normal inspection Skin: normal color, warm/dry Extremities: normal range of motion, non-tender Neuro/Psych: no motor/sensory deficits, alert, normal mood/affect, oriented x 3 ICD10 Worksheet Patient Problems: Problems Problem Status Onset Chest pain Acute Crohn disease Acute
[2018-09-20] MEDS: levOFLOXACIN 500 MG/DEXTROSE 100 ML IV SCH (20:59)
[2018-09-21 04:22] LABS: PLATELET COUNT 305 10^3/uL (150-400)
[2018-09-21 05:26] VITALS: BP 90/49
[2018-09-21] MEDS: ONDANSETRON DISINTEGRATING 4 MG TAB PO PRN (08:20)
--- NOTE | 2018-09-21 12:51 | HOSPPROG ---
Hospitalist Progress Note Assessment/Plan: 42 year old female with PMH of crohns, ILD, likely MAC, who presented with pleuritic pain and increased cough. Here for IV levaquin for possible bacterial PNA superimposed on underlying MAC. Bronchiectasis exacerbation- on levaquin. AFB smear reviewed. No TB, but lots of AFB on stain. awaiting final identification. Treating for bacterial overgrowth with levaquin. case complicated by the fact that patient refuses any oral medications. She has refused treatment in the past at [facility] saying she can only have IV medications. day 11/01 levoflox explained to patient that she will likely from underlying mac without treatment (she says she will only take IV) await afb results neg thus far, TB previously ruled out states she will follow up at [place] for MAC treatment non occlusive thrombus: pull picc repeat u/s 09/29. here pcp will follow up MAC- severe. Diagnosed at [facility] in 2017. TB previously ruled out. Refused treatment saying she could not take oral medications but is tolerating IV fine. AFB X 3 ordered, pulm has seen and advised her that she will likely without treatment but patient remains adamant that she must have an IV regimen. AFB pending bacterial/fungal cultures pending Crohns- in remission per report. Chronic pain- demanding IV pain medications, saying oral narcotics cause her to have GI bleeds. PPX- SCds, ambulate TID Fluids-PO Lytes- WNl Nutrition- regular Cor- Full Dispo-home today >30 minutes on dc Subjective: picc line w non occlusive thrombus Objective: Vital Signs Temp Pulse Resp BP Pulse Ox 36.1 C 102 H 18 90/49 L 93 09/21/18 08:00 09/21/18 08:00 09/21/18 08:00 09/21/18 05:25 09/21/18 08:00 Microbiology 09/17/18 21:05 - Final Sputum, Expectorated Sputum Culture - Final Laboratory Results 09/21/18 04:15 09/21/18 04:15 09/20/18 09/21/18 09/22/18 05:59 05:59 05:59 Intake Total 350 250 Balance 350 250 PT 13.6 SEC (12.0-15.0) 09/16/18 18:23 INR 1.08 (0.83-1.16) 09/16/18 18:23 - Physical Exam Constitutional: no apparent distress, appears nourished Eyes: PERRL, anicteric sclera Ears, Nose, Mouth, Throat: moist mucous membranes, hearing normal Cardiovascular: regular rate and rhythym, no murmur, rub, or gallop Respiratory: no respiratory distress, no rales or rhonchi Gastrointestinal: normoactive bowel sounds, soft, non-tender abdomen Genitourinary: no bladder fullness, No feng in urethra Skin: warm, normal color Musculoskeletal: full muscle strength Neurologic: AAOx3 ICD10 Worksheet Patient Problems: Problems Problem Status Onset Crohn disease Acute Chest pain Acute
--- NOTE | 2018-09-21 18:40 | GDS ---
[f rep st] DISCHARGE SUMMARY DISCHARGE DIAGNOSES: 1. History of locally advanced mycobacterium avium complex disease, thus far not untreated. 2. History of endometriosis. 3. History of Crohn disease. 4. Possible superimposed bacterial pneumonia. HOSPITAL COURSE: Please see admission history and physical by Dr. Nilda Taylor's. The patient prese nted with malaise and cough productive of yellow sputum. Her family had seen a number of viral illnes ses going around. She had a negative viral PCR. Chest CT showed locally advanced MAC and possible sup erimposed bacterial pneumonia. She received 5 days of levofloxacin with improvement in symptoms. Nota zari, she is intolerant of all oral antibiotics for reasons that are uncertain. She was seen by Pulbianca lane who recommended that we not initiate MAC therapy here, that we treat this pneumonia and follow up with [facility] where she has her care established. She developed a nonocclusive DVT in her subclavian vein, secondary to PICC line. PICC was removed and a plan for outpatient repeat ultrasound is undertaken. She was advised to elevate her arm and seek c are should it get worse or should she have chest pain or shortness of breath or pulmonary embolism ty pe symptoms, which I did explain to her. I have contacted her primary care physician to explain the s ituation. Copy requested to: Niru Benavides MD [facility] /[id number]/MOD[facility]
== END 2018-09-21 14:00 | disposition home or self-care (01) | DRG 137 ==
LOC: F2W 22:24 → OBSVTOIN 09-17 19:49 → F2W 09-18 23:32
PROVIDERS: ADMIT Student in an Organized Health Care Education/Training Program; ATTEND Internal Medicine
PROC: 02HV33Z Insertion of Infusion Device into Superior Vena Cava, Percutaneous Approach (ICD-10-PCS; principal; 2018-09-18)
PROC: B51M1ZA Fluoroscopy of Right Upper Extremity Veins using Low Osmolar Contrast, Guidance (ICD-10-PCS; principal; 2018-09-18)
PROC: B54MZZA Ultrasonography of Right Upper Extremity Veins, Guidance (ICD-10-PCS; principal; 2018-09-18)
DX: J15.8 Pneumonia due to other specified bacteria (principal); A31.0 Pulmonary mycobacterial infection; J47.1 Bronchiectasis with (acute) exacerbation; J84.9 Interstitial pulmonary disease, unspecified; T82.818A Embolism due to vascular prosthetic devices, implants and grafts, initial encounter; K50.90 Crohn's disease, unspecified, without complications; E44.0 Moderate protein-calorie malnutrition; M06.9 Rheumatoid arthritis, unspecified; R91.8 Other nonspecific abnormal finding of lung field; G89.29 Other chronic pain; F12.20 Cannabis dependence, uncomplicated; F17.210 Nicotine dependence, cigarettes, uncomplicated; Z88.0 Allergy status to penicillin; Z87.01 Personal history of pneumonia (recurrent); Z88.2 Allergy status to sulfonamides
CPT/HCPCS: 87188-90; 87556-90; 96374; C1751; G0378; J1956; J2270; J2405; Q9967

== ENCOUNTER → 2018-09-29 | Outpatient (CLI) | payer MEDICAID | LOC: FIMAGING 11:02 | PROVIDERS: ATTEND Family Medicine | DX: I82.B11 Acute embolism and thrombosis of right subclavian vein (principal) ==